=== PATIENT | female | born 1950 | race Caucasian/White ===

== ENCOUNTER → 2017-03-21 | Outpatient (CLI) | payer MEDICARE, OTHER ==
[~2017-03-21] MED LIST: /ADVA50050; /ALEN70TA; /AUGM875TA; /FEXO60TA; ASPI81TA83; CALCCHW12; ESTER C; KEFL500C; MOTR200T4; NASONEX; PRIL40CA; PROV90AE; SIMV10TA2; THERGRAN; VITA400C; ZEBE5TAB
[2017-03-23 14:15] LABS: F8 ACTIVITY FOR F8 PANEL 278 % (57-163); F8 ACTIVITY vWB FOR F8 PANEL 207 % (50-200); F8 ANTIGEN FOR F8 PANEL 260 % (50-200); INTERPRETATION: Note (.)
== END ==
LOC: M LAB 08:56
PROVIDERS: ATTEND Surgery
DX: I80.02 Phlebitis and thrombophlebitis of superficial vessels of left lower extremity (principal)

== ENCOUNTER → 2017-05-03 | Outpatient (REF) | payer MEDICARE, OTHER ==
[2017-05-03 13:24] LABS: FOLATE 6.8 NG/ML
[2017-05-03 13:27] LABS: INR 0.9
== END ==
LOC: M LAB REF 12:51
PROVIDERS: ATTEND Internal Medicine Medical Oncology
DX: M32.9 Systemic lupus erythematosus, unspecified (principal)

== ENCOUNTER → 2019-01-22 | Outpatient (REF) | payer MEDICARE, OTHER ==
[~2019-01-22] MED LIST changes: -/ADVA50050; +ADVA1AER2
== END ==
LOC: M LAB REF 11:34
PROVIDERS: ATTEND Internal Medicine
DX: D05.11 Intraductal carcinoma in situ of right breast (principal)

== ENCOUNTER → 2019-04-03 | Outpatient (CLI) | payer MEDICARE, OTHER ==
[~2019-04-03] MED LIST changes: +ADV250INH INH; +ALEN70TA74 PO; +ASPI81TA85 PO; +BISO5TAB2 PO; +DICL1GEL3; +LISI10TA4 PO; +OMEP40CA2 PO; +PROAAER10 INH; +SIMV20TA2 PO; +SM LTAB5 PO; +TAMO20TA8 PO
--- NOTE | 2019-04-07 08:24 | RADONC ---
RADIATION ONCOLOGY CONSULTATION NOTE DATE: 04/03/2019 CHART NUMBER: [id number] DIAGNOSIS: Right breast cancer. STAGE: IA, T1mi,pN0,M0, grade 1, HER2 negative, ER positive, [place] positive. ECOG PERFORMANCE STATUS: 0. CONSULTATION NOTE: Ms. 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 HISTORY OF PRESENT ILLNESS: The patient was in her usual state of health until routine mammogram was done on 12/22/2018 which showed a small nodular region in the 9 o'clock position of the right breast. On 03/28/2019 the patient underwent breast biopsy and pathology revealed a low grade ductal carcinoma in situ measuring approximately 4 mm in greatest extent. There were two microscopic foci of invasive carcinoma adjacent to the DCIS. Both foci were less than 1 mm. The invasive tumor was actually too small to grade and appeared to be a well-differentiated invasive lobular carcinoma. Lymphovascular invasion was not seen. Three sentinel lymph nodes were sampled and were negative for metastatic disease. The patient was seen by Dr. Jordana Rm from medical oncology and has started tamoxifen. She is now being referred for discussion of external beam radiation therapy as a possible option. PAST MEDICAL HISTORY: The patient's past medical history is positive for hypertension, asthma and arthritis. 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 ALLERGIES: The patient has no known drug allergies. SOCIAL HISTORY: The patient quit smoking at around the age of 24. She had smoked for 5 years. She drinks alcohol socially. FAMILY HISTORY: The patient's family history is positive for two brothers each with both bladder and prostate cancer. REVIEW OF SYSTEMS: The patient's review of systems is noncontributory. She denies nausea, vomiting, fevers, chills, night sweats, diplopia, headaches, anxiety or depression, anorexia, weight loss, visual disturbances, chest pain, urinary or bowel difficulties, bone pain, or neurological problems. PHYSICAL EXAMINATION: The patient is a well-developed, well-nourished, female in no acute distress. HEENT exam is normocephalic, atraumatic. Extraocular movements are intact. There is no palpable cervical, supraclavicular, infraclavicular, axillary, or inguinal lymphadenopathy present. Lungs are clear to auscultation and percussion. Heart has a regular rate and rhythm. Abdomen is benign with no hepatosplenomegaly, masses, or tenderness. Breast examination reveals no masses or discharge bilaterally. Skeletal examination reveals no tenderness to pressure or percussion of the bony skeleton. Extremities reveal no clubbing, cyanosis, or edema. Neurologic exam is grossly intact, as is the remainder of the physical examination. ASSESSMENT: I had a very lengthy discussion with this patient to review her options. I do believe she is a candidate for external beam radiation therapy and I have so informed her. I have discussed with the patient in detail the potential benefits as well as possible acute and chronic sequelae of external beam radiation therapy. We discussed logistics of treatment planning, simulation and subsequent fractionated daily radiation treatments. In addition, I discussed in detail and gave her copies of the NCCN guidelines for early stage invasive breast cancer. Option one as clearly stated, breast irradiation may be omitted in patients 70 years of age or greater with estrogen/receptor positive, clinical node negative, T1 tumors who receive adjuvant endocrine therapy. That would include this patient although she just barely makes it with her age. The other option would be standard fractionation radiation to the whole breast for a total of approximately 6-1/2 weeks of treatment. The third option of course would be the [place] protocol with hypofractionated radiation over 3 weeks with possibly 1 week for scar boost treatment . The patient has decided she does want radiation and I have asked her to think about the two options with fractionation schedules. I think she would qualify for either one. The patient is light skinned and of [place] descent and is somewhat concerned with higher daily doses and the possibility for increased burning. I let her know that we have done this quite some time and I have not seen any significant increases in radiation erythema effects with the hypofractionated protocol but she will think about it and get back to us before we initiate treatment. I have scheduled this patient for the next available simulation slot and radiation treatments will begin subsequently. Thank you for allowing us to participate in the care of this very pleasant woman. If I could be of any further assistance or provide you with any information, please free to contact me anytime. cc: MD Kala Knight MD Sara McGee, MD [facility]
== END ==
LOC: M ONCR 13:39
PROVIDERS: ATTEND Radiology Radiation Oncology
DX: C50.911 Malignant neoplasm of unspecified site of right female breast (principal)

== ENCOUNTER → 2019-04-14 | Outpatient (RCR) | payer MEDICARE, OTHER ==
[2019-04-08 14:57] LABS: HEMATOCRIT 34.9 % (36.0-47.0); HEMOGLOBIN 11.7 g/dl (12.0-15.5); LYMPH % 29.8 % (24.0-44.0); MEAN CORPUSCULAR HEMOGLOBIN 31.5 pg (27.0-33.0); MEAN CORPUSCULAR HGB CONC 33.5 g/dl (32.0-36.5); NEUTROPHILS # 3.5 10^3/uL (1.8-7.7); NEUTROPHILS % 61.3 % (36.0-66.0); RED BLOOD COUNT 3.71 10^6/uL (4.00-5.40); WHITE BLOOD COUNT 5.7 10^3/uL (4.0-10.0)
--- NOTE | 2019-04-09 15:31 | RADONC ---
RADIATION ONCOLOGY SIMULATION NOTE DATE: 04/08/2019 CHART NUMBER: [id number] Ms. Gallagher was taken to the CT scan for CT simulation of her right breast field. CT was accomplished without difficulty or discomfort. Radiation treatment planning is underway and radiation treatments will begin subsequently. An immobilization device was created. It was created without difficulty or discomfort. It will be used throughout the course of treatment. I was physically present throughout the course of CT simulation.
--- NOTE | 2019-04-15 08:32 | RADONC ---
RADIATION ONCOLOGY PROGRESS NOTE DATE: 04/14/2019 CHART #: [id number] Ms. Gallagher is presently at a dose of 180 cGy for her first fraction of radiation to her right breast. It was tolerated without difficulty or discomfort. REVIEW OF SYSTEMS: The patient's review of systems is noncontributory. Denies nausea, vomiting, fevers, chills, night sweats, diplopia, headaches, anxiety or depression, anorexia, weight loss, visual disturbances, chest pain, urinary or bowel difficulties, bone pain, or neurological problems. PHYSICAL EXAMINATION: The patient's skin clearly shows no evidence of radiation change present as this was her first fraction of treatment. The remainder of her physical exam remained unchanged as well. Ms. Gallagher tolerated his first fraction quite well and radiation will continue as scheduled.
== END ==
LOC: M ONCR 04-08 13:52
PROVIDERS: ATTEND Radiology Radiation Oncology
DX: C50.811 Malignant neoplasm of overlapping sites of right female breast (principal)

== ENCOUNTER → 2019-05-15 | Outpatient (RCR) | payer MEDICARE, OTHER ==
--- NOTE | 2019-04-21 10:54 | RADONC ---
RADIATION ONCOLOGY DATE: 04/21/2019 CHART NUMBER: [id number] PROGRESS NOTE: Ms. Gallagher is presently a dose of 1080 cGy to her right breast and is tolerating treatments quite well at this point with no complaints related to her radiation therapy. She is having no breast or bone pain. REVIEW OF SYSTEMS: The patient's review of systems is noncontributory. Denies nausea, vomiting, fevers, chills, night sweats, diplopia, headaches, anxiety or depression, anorexia, weight loss, visual disturbances, chest pain, urinary or bowel difficulties, bone pain, or neurological problems. PHYSICAL EXAMINATION: The patient's skin is in good condition with no evidence of radiation change present. There is no moist or dry desquamation. The remainder of her physical exam remains unchanged. Ms. Gallagher is tolerating treatments quite well and radiation will continue as scheduled.
--- NOTE | 2019-04-28 09:58 | RADONC ---
RADIATION ONCOLOGY PROGRESS NOTE DATE: 04/28/2019 CHART NUMBER: [id number] PROGRESS NOTE: Ms. Gallagher is presently at a dose of 1980 cGy to her right breast and is tolerating treatments quite well at this point with no complaints related to her radiation therapy. She is having no breast or bone pain. REVIEW OF SYSTEMS: The patient's review of systems is noncontributory. Denies nausea, vomiting, fevers, chills, night sweats, diplopia, headaches, anxiety or depression, anorexia, weight loss, visual disturbances, chest pain, urinary or bowel difficulties, bone pain, or neurological problems. PHYSICAL EXAMINATION: The patient's skin is in good condition with no evidence of moist or dry desquamation. The remainder of her physical exam remains unchanged. Ms. Gallagher is tolerating treatments quite well and radiation will continue as scheduled.
--- NOTE | 2019-05-06 06:45 | RADONC ---
RADIATION ONCOLOGY PROGRESS NOTE DATE: 05/05/2019 CHART #: [id number] DIAGNOSIS: Right breast cancer. Mrs. Gallagher with a diagnosis of a stage I A right breast cancer, HER2/aga negative, ER positive, [place] positive, is currently receiving local regional radiotherapy and appears to be doing quite well. She denies any major side effects relating to her treatments. Her energy level is excellent. REVIEW OF SYSTEMS: She specifically denies any nausea, vomiting, coughing, sputum production or hemoptysis. Her energy level is such that she is able to maintain most day-to-day activities without any alteration of her lifestyle. Skin irritation is minimal if perceptible at all. EXAMINATION FINDINGS: The skin within the irradiated volume looks normal. There is no palpable peripheral lymphadenopathy. The remainder of the physical examination is unchanged. IMPRESSION: Tolerating therapy well. PLAN: Treatments to continue. MTDD
--- NOTE | 2019-05-12 09:43 | RADONC ---
RADIATION ONCOLOGY PROGRESS NOTE DATE OF SERVICE: 05/12/2019 CHART NUMBER: [id number]. PROGRESS NOTE: Ms. Gallagher is presently at a dose of 3780 cGy to her right breast and is tolerating treatments quite well at this point with no complaints related to her radiation therapy. She has no significant breast or bone pain. REVIEW OF SYSTEMS: The patient's review of systems is noncontributory. She denies nausea, vomiting, fevers, chills, night sweats, diplopia, headaches, anxiety or depression, anorexia, weight loss, visual disturbances, chest pain, urinary or bowel difficulties, bone pain, or neurological problems. PHYSICAL EXAMINATION: The patient's skin is in good condition with no evidence of moist or dry desquamation. There is some erythema present over the treated field. The remainder of her physical exam remains unchanged. Ms. Gallagher is tolerating treatments quite well, and radiation will continue as scheduled.
--- NOTE | 2019-05-14 12:13 | RADONC ---
RADIATION ONCOLOGY SIMULATION NOTE DATE: 06/14/2019 Ms. Gallagher was taken to the linear accelerator today for clinical setup of her right breast electron beam boost field. Setup was accomplished without difficulty or discomfort. Radiation treatment planning is underway and radiation treatments will begin subsequently. An immobilization device was created without difficulty or discomfort. It will be used throughout the course of treatment. I was physically present throughout the course of clinical setup simulation.
[~2019-05-15] MED LIST changes: -OMEP40CA2 PO; +OMEP40CA97 PO
== END ==
LOC: M ONCR 04-15 08:10
PROVIDERS: ATTEND Radiology Radiation Oncology
DX: C50.811 Malignant neoplasm of overlapping sites of right female breast (principal)

== ENCOUNTER 2019-05-28 08:16 | Outpatient (RCR) | payer MEDICARE, OTHER ==
--- NOTE | 2019-05-19 13:35 | RADONC ---
RADIATION ONCOLOGY PROGRESS NOTE DATE: 05/19/2019 CHART NUMBER: [id number] Mrs. Gallagher, with a diagnosis of right-sided breast cancer, is currently receiving local regional radiotherapy and her dose to date is 4860 cGy. She will receive a 1200 cGy boost to the lumpectomy site following completion of her whole breast radiotherapy. REVIEW OF SYSTEMS: She is tolerating her radiotherapy reasonably well with the only major side effect being that of skin irritation. She denies any nausea, vomiting, coughing, sputum production or hemoptysis. Her energy level is such that she is able to maintain most day-to-day activities without any alteration of her lifestyle. EXAMINATION FINDINGS: The skin within the irradiated volume shows focal desquamation in the inframammary fold. There is a brisk erythematous blush throughout the inframammary area. No palpable peripheral lymphadenopathy is appreciated. Lungs are clear. IMPRESSION: Tolerating therapy well. PLAN: We have prescribed some Silvadene for the patient to use on her skin for her skin reaction and subsequent discomfort secondary to this reaction. Treatments to continue. MTDD
--- NOTE | 2019-05-26 10:07 | RADONC ---
RADIATION ONCOLOGY PROGRESS NOTE DATE OF SERVICE: 05/26/2019 CHART NUMBER: [id number]. PROGRESS NOTE: Ms. Gallagher is presently at a dose of 5660 cGy to her right breast primary site boost and is tolerating treatments quite well at this point with no significant difficulties related to her radiation therapy other than some axillary and inframammary discomfort. REVIEW OF SYSTEMS: The patient's review of systems is positive for discomfort in the inframammary and axillary regions but is otherwise noncontributory. She denies nausea, vomiting, fevers, chills, night sweats, diplopia, headaches, anxiety or depression, anorexia, weight loss, visual disturbances, chest pain, urinary or bowel difficulties, bone pain, or neurological problems. PHYSICAL EXAMINATION: The patient's skin in the presently-treated boost field is within good conditions with no evidence of moist or dry desquamation. There is some moist desquamation in the inframammary area and some dry desquamation in the axillary region. The remainder of her skin has some erythema and tanning present. The remainder of her physical exam remains unchanged. Ms. Gallagher is tolerating her treatments fairly well and is continuing radiation to the boost region. She is using Silvadene regularly in the axillary and inframammary regions.
--- NOTE | 2019-05-28 12:44 | RADONC ---
RADIATION ONCOLOGY TREATMENT SUMMARY DATE: 05/28/2019 CHART NUMBER: [id number] DIAGNOSIS: Right breast cancer. STAGE: IA, T1mi, pN0M0, grade 1, HER2/aga negative, [place] positive, ER positive. ECOG PERFORMANCE STATUS: 0 TREATMENT SUMMARY: Ms. Gallagher is a very pleasant 69-year-old white female with the diagnosis of what appears to be a stage IA, T1mi, pN0M0, well-differentiated infiltrating ductal carcinoma of the right breast which is ER positive, [place] positive, and HER2/aga negative, who presented to us status post lumpectomy and sentinel lymph node biopsy for consideration of postoperative radiation therapy for conservative breast management. We treated the patient to the right breast for a total dose of 4860 cGy delivered in 27 fractions of 180 cGy each over 36 elapsed days from 04/14/2019 through 05/20/2019. The patient's right breast was treated on the linear accelerator utilizing a 3D conformal technique with medial and lateral tangential langley and a combination of 10MV and 6MV photons. Following completion of 4860 cGy to the entire right breast, the primary site was boosted for an additional 1200 cGy delivered in six fractions of 200 cGy each from 05/21/2019 through 05/28/2019 over 7 elapsed days. This brought the primary site to a total dose of 6060 cGy delivered in 33 fractions over 43 elapsed days from 04/14/2019 through 05/28/2019. Ms. Gallagher tolerated her treatments quite well and was able to complete therapy as prescribed. I have scheduled the patient to see me again in 1 month for further followup. She will also continue to be followed by her other physicians as well. Thank you for allowing us to participate in the care of this very pleasant woman. If I could be of any further assistance or provide you with any information, please feel free to contact me at anytime. cc: MD Kala Knight MD Sara McGee, MD
[2019-06-07] MEDS ORDERED: CEFU1TAB22 (17:12)
[2019-06-09] MEDS ORDERED: TAMO20TA8 PO (11:50)
== END 2019-06-14 ==
LOC: M ONCR 08:16
PROVIDERS: ATTEND Radiology Radiation Oncology
DX: C50.811 Malignant neoplasm of overlapping sites of right female breast (principal)

== ENCOUNTER 2019-06-07 16:15 | Emergency (ER) | payer MEDICARE, OTHER ==
[~2019-06-07] VITALS: Ht 162.6 cm; Wt 115.9 kg
[2019-06-07] MEDS ORDERED: ONDANSETRON 4MG/2ML VIAL (J2405) IV ONE (16:45)
[2019-06-07] MEDS ORDERED: MORPHINE 2 MG/ML 1ML VIAL (J2270) IV ONE (16:45)
[2019-06-07] MEDS ORDERED: ASPIRIN 81 MG CHEW TABLET PO ONE (16:45)
[2019-06-07] MEDS ORDERED: ISOVUE-370 76% 100ML VIAL (Q9967) As Ordered ONE (16:50)
[2019-06-07 16:58] LABS: BASO % 0.5 % (0.0-1.0); EOS # 0.1 10^3/uL (0.0-0.5); EOS % 2.5 % (0.0-3.0); HEMATOCRIT 37.5 % (36.0-47.0); HEMOGLOBIN 12.8 g/dl (12.0-15.5); LYMPH # 0.8 10^3/uL (1.5-5.0); LYMPH % 14.6 % (24.0-44.0); MEAN CORPUSCULAR HEMOGLOBIN 31.1 pg (27.0-33.0); MEAN CORPUSCULAR HGB CONC 34.1 g/dl (32.0-36.5); MEAN CORPUSCULAR VOLUME 91.2 fl (80.0-96.0); MONO # 0.5 10^3/uL (0.0-0.8); MONO % 8.1 % (0.0-5.0); NEUTROPHILS # 4.2 10^3/uL (1.5-8.5); NEUTROPHILS % 73.9 % (36.0-66.0); PLATELET COUNT, AUTOMATED 251 10^3/uL (150-450); RED BLOOD COUNT 4.11 10^6/uL (4.00-5.40); WHITE BLOOD COUNT 5.7 10^3/uL (4.0-10.0)
[2019-06-07] MEDS ORDERED: GI COCKTAIL 50ML BTL(HYOSCYAMINE/MAALOX/LIDOCAINE VISCOUS)(1:3:1) PO ONE ×2 (17:00→20:15)
[2019-06-07] MEDS ORDERED: CEFU1TAB22 (17:12)
[2019-06-07 17:29] LABS: ALBUMIN 3.7 GM/DL (3.2-5.2); ALT/SGPT 21 U/L (12-78); BILIRUBIN,DIRECT < 0.1 MG/DL (0.0-0.2); BILIRUBIN,TOTAL 0.4 MG/DL (0.2-1.0); BLOOD UREA NITROGEN 10 MG/DL (7-18); CARBON DIOXIDE LEVEL 26 MEQ/L (21-32); CHLORIDE LEVEL 100 MEQ/L (98-107); CK-MB VALUE MASS < 1.0 NG/ML (<3.6); CPK CREATINE PHOSPHOKINASE 146 U/L (26-192); CREATININE FOR GFR 0.88 MG/DL (0.55-1.30); FREE T4 1.12 NG/DL (0.76-1.46); GLOMERULAR FILTRATION RATE > 60.0 (>39); GLUCOSE, FASTING 100 MG/DL (70-100); LIPASE 157 U/L (73-393); MB/CK RELATIVE INDEX 0.68 (< OR =4); NT-PRO BNP 524 PG/ML (<125); POTASSIUM SERUM 3.4 MEQ/L (3.5-5.1); SODIUM LEVEL 136 MEQ/L (136-145); TOTAL PROTEIN 7.6 GM/DL (6.4-8.2); TROPONIN I < 0.02 NG/ML (< 0.10)
[2019-06-07 17:42] LABS: INR 1.1; PARTIAL THROMBOPLASTIN TIME 23.9 SECONDS (25.0-38.4)
--- NOTE | 2019-06-07 18:09 | REPVR ---
PROCEDURE INFORMATION: Exam: CT Angiography Chest With Contrast Exam date and time: 06/07/2019 4:44 PM Age: 69 years old Clinical history: Other: Nausea; Sternal or substernal pain; Additional info: RO dissection/pe TECHNIQUE: Imaging protocol: Computed tomographic angiography of the chest with intravenous contrast. 3D rendering: MIP and 3D reconstructed images were created and reviewed. Radiation optimization: All CT scans at this facility use at least one of these dose optimization techniques: automated exposure control; mA and/or kV adjustment per patient size (includes targeted exams where dose is matched to clinical indication); or iterative reconstruction. Contrast material: ISOVUE 370; Contrast volume: 75 ml; Contrast route: IV; COMPARISON: CR PORTABLE CHEST X-RAY 2019-06-07 16:20 FINDINGS: Limitations: Limited by patient's body habitus. Pulmonary arteries: Normal. No pulmonary emboli. Aorta: Unremarkable. No aortic aneurysm. No aortic dissection. Lungs: Dependent subsegmental pulmonary atelectasis. Pleural space: Unremarkable. No pneumothorax. No pleural effusion. Heart: Cardiomegaly. Lymph nodes: Unremarkable. No enlarged lymph nodes. Bones/joints: Mild to moderate thoracic spondylosis with exaggeration of the thoracic kyphosis and associated degenerative endplate spurring and disc space loss. Soft tissues: Right breast skin thickening with 5.6 x 1.8 cm small area of fluid density in the subcutaneous soft tissue. IMPRESSION: 1. No acute aortic abnormality. 2. Right breast skin thickening with 5.6 x 1.8 cm small area of fluid density in the subcutaneous soft tissue. Electronically signed by: Miquel Gallardo On 06/07/2019 18:09:38 PM
--- NOTE | 2019-06-07 19:04 | ECGEPIP ---
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
--- NOTE | 2019-06-07 19:04 | ECGEPIP ---
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
[2019-06-07] MEDS ORDERED: NORCO, ANEXSIA 5/325MG TABLET (HYDROcodone/ACETAMINOPHEN) PO ONE (20:15)
[2019-06-07] MEDS ORDERED: ONDANSETRON 4 MG ORAL DISINTEGRATING TAB (Q0162 PER 1MG) PO ONE (20:15)
[2019-06-07 21:08] LABS: CK-MB VALUE MASS < 1.0 NG/ML (<3.6); CPK CREATINE PHOSPHOKINASE 91 U/L (26-192); TROPONIN I < 0.02 NG/ML (< 0.10)
[2019-06-07 21:47] VITALS: BP 150/69
--- NOTE | 2019-06-08 06:28 | ECGEPIP ---
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
--- NOTE | 2019-06-08 08:05 | REP ---
REASON: Chest pain. COMPARISON: Multiple, the latest 05/14/2014. The technique utilized in obtaining the radiograph has magnified the cardiac silhouette and accentuated the interstitial markings. There is cardiomegaly accentuated by technique. The lung langley are unchanged from the prior exam. No acute patchy parenchymal opacities or pleural effusions have developed. The osseous structures are stable and intact. IMPRESSION: Cardiomegaly without evidence of acute cardiopulmonary disease. Electronically Signed by Royer Warren DO 06/08/2019 09:24 A
--- NOTE | 2019-06-08 19:59 | ED PDOC ---
Post-Departure Follow-Up dr mancilla faxed formal report of cta chest for fu Elly Vo MD Jun 08, 2019 19:59
== END 2019-06-07 22:06 | disposition home or self-care (01) ==
LOC: M ED 16:15
DX: R07.9 Chest pain, unspecified (principal); R94.31 Abnormal electrocardiogram [ECG] [EKG]; I10 Essential (primary) hypertension; E78.5 Hyperlipidemia, unspecified; Z79.899 Other long term (current) drug therapy; Z85.3 Personal history of malignant neoplasm of breast; Z87.891 Personal history of nicotine dependence; Z91.048 Other nonmedicinal substance allergy status
CPT/HCPCS: 71045; 71275; 80047; 80048; 80076; 82550; 82553; 83690; 84439; 84443; 84484; 85025; 85610; 85730; 87040; 93005; 93041; 94760; 96374; 96375; 99285; J2270; J2405; Q0162; Q9967

== ENCOUNTER → 2019-07-02 | Outpatient (CLI) | payer MEDICARE, OTHER ==
[~2019-07-02] MED LIST changes: +CEFU1TAB22; -SIMV20TA2 PO; +SIMV20TA22 PO
--- NOTE | 2019-07-04 15:00 | RADONC ---
RADIATION ONCOLOGY FOLLOWUP NOTE: DATE: 07/02/2019 CHART NUMBER: [id number] DIAGNOSIS: Right breast cancer. STAGE: I A, pT1mi pN0 M0, grade 1, HER2/aga negative, ER positive, [place] positive. ECOG PERFORMANCE STATUS: 0 Ms. Gallagher is a pleasant 69-year-old white female with the diagnosis of what appears to be a stage I A, little pT1mi pN0 cM0, well-differentiated infiltrating ductal carcinoma of the right breast which is ER positive, [place] positive and HER2/aga negative, who is presenting to us today for routine followup visit 1 month post completion of external beam radiation therapy. The patient presents today reporting that generally she is doing quite well with no complaints at this time related to her radiation therapy or disease. She did have some bronchitis upon completion of treatment and has had some gallbladder issues but nothing related to her malignancy over her radiation. The patient's review of systems at this time is noncontributory. She denies standard review of systems. PHYSICAL EXAMINATION: The patient is a well-developed, well-nourished female in no acute distress. HEENT exam is normocephalic, atraumatic. Extraocular movements are intact. There is no palpable cervical, supraclavicular, infraclavicular, axillary, or inguinal lymphadenopathy present. Lungs are clear to auscultation and percussion. Heart has a regular rate and rhythm. Abdomen is benign with no hepatosplenomegaly, masses, or tenderness. Breast examination reveals no masses or discharge bilaterally. Skeletal examination reveals no tenderness to pressure or percussion of the bony skeleton. Extremities reveal no clubbing, cyanosis, or edema. Neurologic exam is grossly intact, as is the remainder of the physical examination. ASSESSMENT: The patient is clinically [place]ER[place] at this time. She is continuing her close followup with her surgeon Dr. Frank Carpenter and is seeing him every 3 weeks. His office informed her that they will be ordering the mammograms and all scheduled appointments. In light of this I am discharging her from my followup except on a p.r.n. basis. The patient was seen by Dr. Jordana Rm for initiation of her tamoxifen. Dr. Rm has left and the patient does not wish to be seen in [facility]ology [facility]. She is asked for referral to [place]. We are happy to refer her to an oncologist in [place] but I since all her followup and management will now be through Dr. Carpenter's office, I have asked her to contact him and seen which oncologist he prefers to work with. I would be glad to send a referral myself or Dr. Carpenter can do that as well. Once again, the patient has my cell phone number and office number. We are available to her at anytime if we could be of any assistance in the meantime. cc: MD Nancy Knight MD Julie LaPointe, MD
== END ==
LOC: M ONCR 08:58
PROVIDERS: ATTEND Radiology Radiation Oncology
DX: C50.811 Malignant neoplasm of overlapping sites of right female breast (principal); Z92.3 Personal history of irradiation

== ENCOUNTER 2019-07-15 07:50 | Inpatient (IN) | payer MEDICARE, OTHER ==
[~2019-07-15] VITALS: Ht 162.6 cm; Wt 109.2 kg
[2019-07-15] MEDS ORDERED: IBUP200C25 PO (08:14)
[2019-07-15] MEDS ORDERED: VOLT1GEL15 TOP (08:14)
[2019-07-15] MEDS ORDERED: ASPI81CH33 PO (08:14)
[2019-07-15] MEDS ORDERED: ALBUTEROL SULFATE 2.5 MG/0.5 ML INH NEB SOLN INH ONE (08:15)
[2019-07-15] MEDS ORDERED: IPRATROPIUM 0.5MG/ALBUTEROL 2.5MG INH SOL UD 3ML (DUONEB)(J7620) NEB ONE (08:15)
[2019-07-15] MEDS ORDERED: dexameTHASONE 20 MG/5 ML VIAL (J1100) IV ONE (08:15)
[2019-07-15] MEDS ORDERED: POTA10TA17 PO (08:16)
[2019-07-15] MEDS ORDERED: POTA20TA6 PO (08:16)
--- NOTE | 2019-07-15 08:32 | REP ---
Clinical: Cough and dyspnea . Comparison: 06/07/2019 . Findings: The mediastinum and cardiac silhouette are stable and within normal limits for portable technique. The lung langley are clear without acute consolidation, effusion, or pneumothorax. Skeletal structures are intact. Impression: No acute cardiopulmonary process appreciated. Electronically Signed by Vladimir Wagner MD 07/15/2019 08:23 A
[2019-07-15 09:06] LABS: VENOUS BASE EXCESS 0.1 (-2.0-2.0); VENOUS HCO3 24.8 MEQ/L (23.0-27.0); VENOUS O2 SATURATION 62.4 % (60.0-80.0); VENOUS PARTIAL PRESSURE CO2 40.4 mmHg (38.0-50.0); VENOUS PH 7.406 UNITS (7.330-7.430); VENOUS STANDARD HCO3 23.9 MEQ/L
[2019-07-15 09:09] LABS: BASO % 0.3 % (0.0-1.0); EOS # 0.1 10^3/uL (0.0-0.5); EOS % 0.8 % (0.0-3.0); HEMOGLOBIN 10.2 g/dl (12.0-15.5); LYMPH % 13.3 % (24.0-44.0); MEAN CORPUSCULAR HEMOGLOBIN 29.9 pg (27.0-33.0); MEAN CORPUSCULAR HGB CONC 32.9 g/dl (32.0-36.5); MEAN CORPUSCULAR VOLUME 90.9 fl (80.0-96.0); MONO # 0.5 10^3/uL (0.0-0.8); MONO % 6.7 % (0.0-5.0); NEUTROPHILS # 5.6 10^3/uL (1.5-8.5); NEUTROPHILS % 78.5 % (36.0-66.0); PLATELET COUNT, AUTOMATED 173 10^3/uL (150-450); RED BLOOD COUNT 3.41 10^6/uL (4.00-5.40); WHITE BLOOD COUNT 7.1 10^3/uL (4.0-10.0)
[2019-07-15 09:29] LABS: INR 1.25; PROTHROMBIN TIME 15.4 SECONDS (11.8-14.0)
[2019-07-15 09:37] LABS: ALT/SGPT 19 U/L (12-78); BILIRUBIN,DIRECT 0.3 MG/DL (0.0-0.2); BILIRUBIN,TOTAL 0.9 MG/DL (0.2-1.0); BLOOD UREA NITROGEN 8 MG/DL (7-18); CALCIUM LEVEL 8.4 MG/DL (8.8-10.2); CARBON DIOXIDE LEVEL 23 MEQ/L (21-32); CHLORIDE LEVEL 98 MEQ/L (98-107); CK-MB VALUE MASS < 1.0 NG/ML (<3.6); CPK CREATINE PHOSPHOKINASE 59 U/L (26-192); CREATININE FOR GFR 1.01 MG/DL (0.55-1.30); GLOMERULAR FILTRATION RATE 57.7 (>39); GLUCOSE, FASTING 127 MG/DL (70-100); MAGNESIUM LEVEL 1.7 MG/DL (1.8-2.4); MB/CK RELATIVE INDEX 1.69 (< OR =4); NT-PRO BNP 3059 PG/ML (<125); POTASSIUM SERUM 3.3 MEQ/L (3.5-5.1); SODIUM LEVEL 132 MEQ/L (136-145); TOTAL PROTEIN 6.5 GM/DL (6.4-8.2); TROPONIN I 0.14 NG/ML (< 0.10)
[2019-07-15] MEDS ORDERED: MAG SULF 1GM/100ML (MAG RUN) 1 GM in IV 1 EA IV ONE (09:45)
[2019-07-15 10:10] LABS: INFLUENZA A AMPLIFICATION NEGATIVE (NEGATIVE); INFLUENZA B AMPLIFICATION NEGATIVE (NEGATIVE)
[2019-07-15] MEDS ORDERED: ISOVUE-370 76% 100ML VIAL (Q9967) As Ordered ONE (10:13)
[2019-07-15] MEDS ORDERED: HEPARIN SOD (PORCINE) 5000 UNITS/ML VIAL IV ONE (11:00)
--- NOTE | 2019-07-15 11:06 | REP ---
Clinical: Shortness of breath. History breast cancer. Technique: Axial contrast enhanced images from the thoracic inlet to the upper abdomen with multiplanar MIP re-formations using pulmonary embolus technique. 100 ml Isovue 370 intravenous contrast material administered without complication. Comparison: 06/07/2019. Findings: Large pulmonary emboli noted in the left main pulmonary artery extending into the left upper lobe, lingular, and left lower lobe branches as well as a large pulmonary embolus extending from the right main pulmonary artery into the right upper lobe, right lower lobe, and right middle lobe pulmonary arteries. Associated right pleural effusion and mild scattered atelectasis noted. No pneumothorax. No axillary, hilar, or mediastinal adenopathy. Thoracic aorta without aneurysm or dissection. Cardiomegaly noted without pericardial effusion. Musculoskeletal structures are intact. Limited upper abdomen demonstrates normal bilateral adrenal glands. Impression: Significant diffuse bilateral pulmonary emboli as detailed above with associated right pleural effusion and scattered atelectasis. Electronically Signed by Vladimir Wagner MD 07/15/2019 10:57 A
[2019-07-15 11:13] LABS: PARTIAL THROMBOPLASTIN TIME 29.6 SECONDS (25.0-38.4)
[2019-07-15] MEDS ORDERED: LORA-674 PO (11:45)
[2019-07-15] MEDS ORDERED: ASPI81TA26 PO (11:45)
[2019-07-15] MEDS ORDERED: FLON1SPR NARES (11:45)
[2019-07-15] MEDS ORDERED: HEPARIN DRIP 25,000 UNITS in IV 1 EA IV SCH (12:00)
[2019-07-15] MEDS ORDERED: HEPARIN SOD (PORCINE) 5000 UNITS/ML VIAL IV PRN (12:45)
[2019-07-15] MEDS: POTASSIUM CHLORIDE 10 MEQ SR TABLET PO SCH ×3 (12:59→16:43)
[2019-07-15 14:00] VITALS: BP 130/70
[2019-07-15] MEDS: HEPARIN DRIP 25,000 UNITS in IV 1 EA IV SCH (14:06)
[2019-07-15] MEDS: bisoproloL fumarate 5 MG TAB PO SCH (14:11)
[2019-07-15] MEDS: LORATADINE 10 MG TAB PO SCH (14:11)
[2019-07-15] MEDS: hydroCHLOROthiazide 12.5 MG CAPSULE PO SCH ×2 (14:12→16:00)
[2019-07-15] MEDS: ASPIRIN 81 MG ENTERIC TAB PO SCH (14:12)
[2019-07-15 16:00] VITALS: BP 141/67
--- NOTE | 2019-07-15 17:15 | HPEPDOC ---
[facility] Medical History & Physical Date of Admission Jul 15, 2019 Date of Service: Jul 15, 2019 Attending Physician: CALE BHATIA MD History and Physical CHIEF COMPLAINT: Progressive shortness of breath HISTORY OF PRESENT ILLNESS: 69-year-old female with past medical history of breast cancer status post lumpectomy, radiation and currently on tamoxifen, hypertension, asthma, and hyperlipidemia presents from home with progressive shortness of breath. She started noticing lower extremity swelling with shortness of breath over the past few days, progressively worsening, to the point of developing shortness of breath even walking 10 feet. She reports being able to walk a city block a week ago, whereas now she can barely walk to the bathroom. She does have associated nonproductive cough with minimal chest discomfort and lower extremity swelling. In the ED, she is found to have large bilateral PEs. She was diagnosed with breast cancer in January 2019, status post lumpectomy followed by radiation treatment and currently on tamoxifen. She denies any nausea, vomiting, abdominal pain, diarrhea or constipation. 10 point review of system is negative except for above PAST MEDICAL HISTORY: 1. Breast cancer. 2. Hypertension. 3. Hyperlipidemia. 4. Asthma PAST SURGICAL HISTORY: 1. Lumpectomy. 2. Cholecystectomy. SOCIAL HISTORY: Never smoker. Social alcohol use. Denies drug use FAMILY HISTORY: Mother had CVA. Father had COPD ALLERGIES: Please see below. HOME MEDICATIONS: Please see below. PHYSICAL EXAMINATION: VITAL SIGNS: Please see below. GENERAL: No distress HEENT: Normocephalic, atraumatic, moist mucous membranes NECK: Supple CARDIOVASCULAR EXAMINATION: S1, S2, tachycardic RESPIRATORY EXAMINATION: Scattered rhonchi, no wheezing ABDOMINAL EXAMINATION: Soft, nontender, nondistended, positive bowel sounds EXTREMITIES: Bilateral lower extremity edema, right greater than left SKIN: No rash NEUROLOGICAL EXAMINATION: Alert and oriented 3, no focal deficits PSYCHIATRIC EXAMINATION: Calm and cooperative LABORATORY DATA: See below. IMAGING: CTA showing bilateral large pulmonary embolism MICROBIOLOGY: Please see below. ASSESSMENT: 69-year-old female with past medical history of breast cancer, hypertension, hyperlipidemia and asthma knee admitted for large bilateral PEs. PLAN: 1. Bilateral pulmonary embolism. Likely caused by malignancy/medication, hemodynamically stable, continue heparin drip, lower extremity Doppler to assess for large DVTs that may require intervention. 2. Breast cancer. Status post lumpectomy and radiation, hold tamoxifen. 3. Hypertension. Continue lisinopril and bisoprolol 4. Hyperlipidemia. Continue statin DVT prophylaxis: On heparin gtt. GI prophylaxis: Home PPI Vital Signs Vital Signs Date Time Temp Pulse Resp B/P (MAP) Pulse Ox O2 Delivery O2 Flow Rate FiO2 07/15/19 14:11 83 130/70 07/15/19 14:00 97.3 25 94 Nasal Cannula 1.0 Laboratory Data Labs 24H Laboratory Tests 2 07/15/19 08:42: Influenza Type A (RT-PCR) NEGATIVE, Influenza Type B (RT-PCR) NEGATIVE 07/15/19 08:51: Immature Granulocyte % (Auto) 0.4, Neutrophils (%) (Auto) 78.5H, Lymphocytes (%) (Auto) 13.3L, Monocytes (%) (Auto) 6.7H, Eosinophils (%) (Auto) 0.8, Basophils (%) (Auto) 0.3, Neutrophils # (Auto) 5.6, Lymphocytes # (Auto) 1.0L, Monocytes # (Auto) 0.5, Eosinophils # (Auto) 0.1, Basophils # (Auto) 0.0, Nucleated Red Blood Cells % (auto) 0.0, Prothrombin Time 15.4H, Prothromb Time International Ratio 1.25, Activated Partial Thromboplast Time 29.6, Blood Gas Bicarbonate Standard 23.9, Venous Blood pH 7.406, Venous Blood Partial Pressure CO2 40.4, Venous Blood Partial Pressure O2 35.0, Venous Blood Total Carbon Dioxide 26.0, Venous Blood HCO3 24.8, Venous Blood Oxygen Saturation 62.4, Venous Blood Base Excess 0.1, Anion Gap 11, Glomerular Filtration Rate 57.7, Calcium Level 8.4L, Magnesium Level 1.7L, Total Bilirubin 0.9, Direct Bilirubin 0.3H, Aspartate Amino Transf (AST/SGOT) 17, Alanine Aminotransferase (ALT/SGPT) 19, Alkaline Phosphatase 51, Total Creatine Kinase 59, Creatine Kinase MB < 1.0, Creatine Kinase MB Relative Index 1.69, Troponin I 0.14H, VH-Pwk-D-Type Natriuretic Peptide 3059H, Total Protein 6.5, Albumin 3.0L, Albumin/Globulin Ratio 0.86L, Thyroid Stimulating Hormone (TSH) 2.250 07/15/19 13:29: Activated Partial Thromboplast Time 46.6H CBC/BMP Laboratory Tests 07/15/19 08:51 Microbiology Microbiology 07/15/19 Blood Culture, Received Pending 07/15/19 Blood Culture, Received Pending Home Medications Scheduled Aspirin (Aspirin EC) 81 Mg Tablet.dr, 81 MG PO DAILY Bisoprolol/Hydrochlorothiazide (Bisoprolol-Hctz 5-6.25 mg Tab) 1 Each Tablet, 1 TAB PO DAILY Lisinopril (Lisinopril) 10 Mg Tablet, 10 MG PO QHS Loratadine (Loratadine) 10 Mg Tablet, 10 MG PO DAILY Omeprazole (Omeprazole) 40 Mg Capsule.dr, 40 MG PO DAILY Potassium Chloride (Potassium Chloride) 10 Meq Tab.er.prt, 20 MEQ PO DAILY Salmeterol/Fluticasone (Advair 250-50 Diskus) 1 Each Blst.w.dev, 1 PUFF INH BID Simvastatin (Simvastatin) 20 Mg Tablet, 20 MG PO QHS Tamoxifen Citrate (Tamoxifen Citrate) 20 Mg Tablet, 1 TAB PO DAILY Scheduled PRN Albuterol Sulfate (Proair Hfa) 8.5 Gm Hfa.aer.ad, 2 PUFF INH QID PRN for SHORTNESS OF BREATH Diclofenac Sodium (Voltaren) 100 Gm Gel..gram., 1 DOSE TOP TID PRN for PAIN APPLY TO ANY AREA OF PAIN Fluticasone Propionate (Flonase Allergy Relief) 9.9 Ml [place].susp, 2 SPRAY NARES DAILY PRN for ALLERGIES Ibuprofen (Ibuprofen) 200 Mg Capsule, 400 MG PO QID PRN for PAIN Allergies Coded Allergies: ENVIROMENTAL (Verified Allergy, Unknown, 06/07/19) A-FIB/CHADSVASC A-FIB History Current/History of A-Fib/PAF?: No CALE BHATIA MD Jul 15, 2019 17:15
[2019-07-15 20:00] VITALS: BP 120/70
[2019-07-15 20:58] LABS: INR 1.24; PROTHROMBIN TIME 15.3 SECONDS (11.8-14.0)
[2019-07-15 20:59] LABS: PARTIAL THROMBOPLASTIN TIME 49.8 SECONDS (25.0-38.4)
[2019-07-15] MEDS: ADVAIR HFA 230/21MCG INHALER INH SCH (21:05)
[2019-07-15] MEDS: RAMELTEON 8 MG TAB (ROZEREM) PO SCH (21:41)
[2019-07-15] MEDS: SIMVASTATIN 20 MG TAB PO SCH (21:41)
[2019-07-15] MEDS: lisinopriL 10 MG TAB PO SCH (21:41)
--- NOTE | 2019-07-15 21:58 | REPVR ---
PROCEDURE INFORMATION: Exam: US Duplex Lower Extremity Veins Exam date and time: 07/15/2019 8:59 PM Age: 69 years old Clinical indication: Other: Pe; Additional info: Assess for dvt TECHNIQUE: Imaging protocol: Real-time duplex ultrasound of the Lower Extremities with 2-D wang scale, color Doppler flow and spectral waveform analysis with image documentation. Complete exam focused on the bilateral lower extremity veins. COMPARISON: No relevant prior studies available. FINDINGS: Right deep veins: Unremarkable. The common femoral, femoral, proximal profunda femoral and popliteal veins are patent without thrombus. Normal Doppler waveforms. Normal compressibility and/or augmentation response. Right superficial veins: Saphenofemoral junction is patent without thrombus. Left deep veins: The common femoral, femoral, proximal profunda femoral veins are patent without thrombus. Occlusive thrombus in the left popliteal vein extending to the tibial peroneal trunk. Left superficial veins: Saphenofemoral junction is patent without thrombus. Soft tissues: Unremarkable. IMPRESSION: Left popliteal DVT. Electronically signed by: Miquel Gallardo On 07/15/2019 21:57:38 PM
[2019-07-16] VITALS (8 sets, daily range): BP systolic 116–165; BP diastolic 59–98
[2019-07-16 03:43] LABS: HEMATOCRIT 27.5 % (36.0-47.0); HEMOGLOBIN 9.3 g/dl (12.0-15.5); MEAN CORPUSCULAR HEMOGLOBIN 30.4 pg (27.0-33.0); MEAN CORPUSCULAR HGB CONC 33.8 g/dl (32.0-36.5); MEAN CORPUSCULAR VOLUME 89.9 fl (80.0-96.0); PLATELET COUNT, AUTOMATED 172 10^3/uL (150-450); RED BLOOD COUNT 3.06 10^6/uL (4.00-5.40); WHITE BLOOD COUNT 6.4 10^3/uL (4.0-10.0)
[2019-07-16] MEDS: HEPARIN DRIP 25,000 UNITS in IV 1 EA IV SCH ×2 (06:03→21:50)
--- NOTE | 2019-07-16 06:50 | ECHO ---
DATE OF SERVICE: 07/15/2019 REFERRING PHYSICIAN: Dr. Chisholm REASON FOR THE STUDY: Pulmonary embolism. ROOM NUMBER: [id number]. 2D MEASUREMENTS: LV: 4.5 cm LVPW: 0.7 cm Aorta: 3.2 cm LA: 3.4 cm IVC: 1.8 cm DOPPLER MEASUREMENTS: Peak velocity across the aortic valve: 1.4 m/s Peak velocity across the LVOT: 0.4 m/s Tricuspid valve velocity: 2.8 m/s 2D COMMENTS: 1. Normal left ventricular size and wall thickness but left ventricular systolic function appeared to be mildly to moderately depressed with an estimated left ventricular ejection fraction (LVEF) between 40-45%. 2. Normal left atrium. The right atrium and the right ventricle appeared to be mildly enlarged in limited use. The right ventricular free wall was not well visualized. 3. The atrial septum appeared to be normal without evidence of defect or shunt. 4. Normal aortic root. 5. No pericardial effusion seen. 6. Minimally calcified aortic valve with normal leaflet excursion. Mildly calcified mitral annulus with normal anterior mitral leaflet motion. Normal tricuspid valve. The pulmonic valve and proximal pulmonary artery branches were not well visualized. 7. The inferior vena cava was normal in size, central venous pressure might be elevated. DOPPLER: It detects mild mitral regurgitation, moderate tricuspid regurgitation, and trace aortic regurgitation. The calculated pulmonary artery systolic pressure varies between 30-40 mmHg. Abnormal relaxation pattern was noted across the mitral valve leaflets as well as the mitral valve annulus consistent with features of grade 1 left ventricular diastolic dysfunction. IMPRESSION: 1. Mild to moderate global left ventricular systolic dysfunction with diffuse hypokinesis. There are some features of grade 1 left ventricular diastolic dysfunction manifested by abnormal relaxation. 2. Aortic valve sclerosis with trace aortic radiation but no aortic stenosis. 3. Mitral annulus calcification with mild mitral regurgitation. 4. Moderate tricuspid regurgitation with mild pulmonary hypertension. The right heart chambers appear to be mildly enlarged in limited views. 5. The pulmonic valve and proximal pulmonary artery branches were not well visualized. MTDD
--- NOTE | 2019-07-16 07:36 | ECGEPIP ---
[facility] - ED Test Date: 2019-07-15 Pat Name: YAIR JERONIMO Department: Room: - Gender: Female Call Center Representative: carlos enriquemaeve : 1950 Requested By: NILESH Brown Order Number: [id number] Reading MD: Nilesh Guadalupe Measurements Intervals Clifford Rate: 90 P: 69 KS: 157 QRS: 26 QRSD: 89 T: 29 QT: 375 QTc: 459 Interpretive Statements SINUS RHYTHM with ventricular ectopy LOW QRS VOLTAGE IN PRECORDIAL LEADS Delayed anterior R wave progression Nonspecific ST-T wave abnormalities Similar to tracing done 06-07-19 Electronically Signed on 07-16-2019 7:36:48 EST by Nilesh Guadalupe
[2019-07-16] MEDS: ADVAIR HFA 230/21MCG INHALER INH SCH ×2 (07:45→20:48)
[2019-07-16 08:39] LABS: ALBUMIN 2.7 GM/DL (3.2-5.2); ALT/SGPT 19 U/L (12-78); BILIRUBIN,TOTAL 0.4 MG/DL (0.2-1.0); BLOOD UREA NITROGEN 12 MG/DL (7-18); CALCIUM LEVEL 8.3 MG/DL (8.8-10.2); CARBON DIOXIDE LEVEL 20 MEQ/L (21-32); CHLORIDE LEVEL 106 MEQ/L (98-107); CREATININE FOR GFR 0.88 MG/DL (0.55-1.30); GLOMERULAR FILTRATION RATE > 60.0 (>39); GLUCOSE, FASTING 138 MG/DL (70-100); MAGNESIUM LEVEL 2.2 MG/DL (1.8-2.4); POTASSIUM SERUM 4.3 MEQ/L (3.5-5.1); SODIUM LEVEL 136 MEQ/L (136-145); TOTAL PROTEIN 6.2 GM/DL (6.4-8.2)
[2019-07-16] MEDS: OMEPRAZOLE 20 MG CAP PO SCH (09:27)
[2019-07-16] MEDS: bisoproloL fumarate 5 MG TAB PO SCH (09:28)
[2019-07-16] MEDS: POTASSIUM CHLORIDE 10 MEQ SR TABLET PO SCH (09:28)
[2019-07-16] MEDS: LORATADINE 10 MG TAB PO SCH (09:28)
[2019-07-16] MEDS: ASPIRIN 81 MG ENTERIC TAB PO SCH (09:28)
[2019-07-16] MEDS: RAMELTEON 8 MG TAB (ROZEREM) PO SCH (20:31)
[2019-07-16] MEDS: lisinopriL 10 MG TAB PO SCH (20:32)
[2019-07-16] MEDS: SIMVASTATIN 20 MG TAB PO SCH (20:32)
--- NOTE | 2019-07-16 20:41 | IPNPDOC ---
Date Seen The patient was seen on 07/16/19. Progress Note HISTORY OF PRESENT ILLNESS: 69-year-old female with past medical history of breast cancer status post lumpectomy, radiation and currently on tamoxifen, hypertension, asthma, and hyperlipidemia presents from home with progressive shortness of breath. She started noticing lower extremity swelling with shortness of breath over the past few days, progressively worsening, to the point of developing shortness of breath even walking 10 feet. She reports being able to walk a city block a week ago, whereas now she can barely walk to the bathroom. She does have associated nonproductive cough with minimal chest discomfort and lower extremity swelling. In the ED, she is found to have large bilateral PEs. She was diagnosed with breast cancer in January 2019, status post lumpectomy followed by radiation treatment and currently on tamoxifen. She denies any nausea, vomiting, abdominal pain, diarrhea or constipation. 07/16/19 Significant improvement in dyspnea, lower extremity Doppler showed left poplit eal vein DVT, no other complaints at this time. She denies any chest pain, nausea, vomiting, abdominal pain, diarrhea or constipation. 10 point review of system is negative except for above PHYSICAL EXAMINATION: VITAL SIGNS: Please see below. GENERAL: No distress HEENT: Normocephalic, atraumatic, moist mucous membranes NECK: Supple CARDIOVASCULAR EXAMINATION: S1, S2, tachycardic RESPIRATORY EXAMINATION: Scattered rhonchi, no wheezing ABDOMINAL EXAMINATION: Soft, nontender, nondistended, positive bowel sounds EXTREMITIES: Bilateral lower extremity edema SKIN: No rash NEUROLOGICAL EXAMINATION: Alert and oriented 3, no focal deficits PSYCHIATRIC EXAMINATION: Calm and cooperative LABORATORY DATA: See below. IMAGING: CTA showing bilateral large pulmonary embolism MICROBIOLOGY: Please see below. ASSESSMENT: 69-year-old female with past medical history of breast cancer, hypertension, hyperlipidemia and asthma admitted for large bilateral PEs. PLAN: 1. Bilateral pulmonary embolism. Likely caused by malignancy/medication, hemodynamically stable, continue heparin drip, lower extremity Doppler showing left popliteal vein, tentatively plan for transition to oral anticoagulation tomorrow. PT eval requested 2. Breast cancer. Status post lumpectomy and radiation, hold tamoxifen. 3. Hypertension. Continue lisinopril and bisoprolol 4. Hyperlipidemia. Continue statin DVT prophylaxis: On heparin gtt. GI prophylaxis: Home PPI VS, I&O, 24H, Fishbone Vital Signs/I&O Vital Signs Date Time Temp Pulse Resp B/P (MAP) Pulse Ox O2 Delivery O2 Flow Rate FiO2 07/16/19 20:32 118/78 07/16/19 16:00 96.1 78 18 96 Room Air 07/16/19 08:00 1.0 I&O- Last 24 Hours up to 6 AM 07/16/19 06:00 Intake Total 414 ml Output Total 800 ml Balance -386 ml Laboratory Data 24H LABS Laboratory Tests 2 07/16/19 03:34: Nucleated Red Blood Cells % (auto) 0.0, Activated Partial Thromboplast Time 102.8H, Anion Gap 10, Glomerular Filtration Rate > 60.0, Calcium Level 8.3L, Magnesium Level 2.2, Total Bilirubin 0.4#, Aspartate Amino Transf (AST/SGOT) 17, Alanine Aminotransferase (ALT/SGPT) 19, Alkaline Phosphatase 46, Total Protein 6.2L, Albumin 2.7L, Albumin/Globulin Ratio 0.77L 07/16/19 09:28: Activated Partial Thromboplast Time 79.4H CBC/BMP Laboratory Tests 07/16/19 03:34 Microbiology Microbiology 07/15/19 Blood Culture - Preliminary, Resulted No growth after 24 hours . All specim... 07/15/19 Blood Culture - Preliminary, Resulted No growth after 24 hours . All specim... CALE BHATIA MD Jul 16, 2019 20:41
[2019-07-17 04:00] VITALS: BP 122/68
[2019-07-17 05:47] LABS: MEAN CORPUSCULAR HEMOGLOBIN 30.2 pg (27.0-33.0); MEAN CORPUSCULAR HGB CONC 32.1 g/dl (32.0-36.5); PLATELET COUNT, AUTOMATED 176 10^3/uL (150-450); RED BLOOD COUNT 2.98 10^6/uL (4.00-5.40); WHITE BLOOD COUNT 5.1 10^3/uL (4.0-10.0)
[2019-07-17 06:08] LABS: CALCIUM LEVEL 8.1 MG/DL (8.8-10.2); CREATININE FOR GFR 1.01 MG/DL (0.55-1.30); GLOMERULAR FILTRATION RATE 57.7 (>39); PHOSPHORUS LEVEL 2.8 MG/DL (2.5-4.9)
[2019-07-17] MEDS: ADVAIR HFA 230/21MCG INHALER INH SCH (07:20)
[2019-07-17 08:00] VITALS: BP 138/80
[2019-07-17] MEDS: POTASSIUM CHLORIDE 10 MEQ SR TABLET PO SCH (08:05)
[2019-07-17] MEDS: OMEPRAZOLE 20 MG CAP PO SCH (08:05)
[2019-07-17 08:06] VITALS: BP 138/80
[2019-07-17] MEDS: ASPIRIN 81 MG ENTERIC TAB PO SCH (08:06)
[2019-07-17] MEDS: bisoproloL fumarate 5 MG TAB PO SCH (08:06)
[2019-07-17] MEDS: LORATADINE 10 MG TAB PO SCH (08:06)
[2019-07-17] MEDS ORDERED: ELIQ5TAB PO (08:39)
[2019-07-17] MEDS ORDERED: APIXABAN 5 MG TAB (ELIQUIS) PO SCH (09:00)
--- NOTE | 2019-07-17 10:58 | DS.PDOC ---
Discharge Summary General Date of Admission Jul 15, 2019 at 12:41 Date of Discharge 07/17/19 Attending Physician: CALE BHATIA MD Discharge Summary PROCEDURES PERFORMED DURING STAY: None. ADMITTING DIAGNOSES: 1. Bilateral PE. DISCHARGE DIAGNOSES: 1. Bilateral PE. COMPLICATIONS/CHIEF COMPLAINT: Breast Ca Hyperlipidemia Hypertension Pe. HISTORY OF PRESENT ILLNESS: 69-year-old female with past medical history of breast cancer status post lumpectomy, radiation and currently on tamoxifen with strong family history of PE was admitted for large bilateral PEs. She was treated with heparin gtt, lower extremity Doppler showed left popliteal DVT. Patient has received 48 hours of anticoagulation with heparin, evaluated and cleared physical therapy without any difficulty, currently asymptomatic, and saturating well on room air. She has no complaints at this time, tolerating t, switched to Eliquis prior to discharge. Patient is advised to take Eliquis 10 mg twice a day for 7 days followed by 5 mg twice a day for at least 3 months. She is advised to follow up with lever operator oncologist regarding duration of anticoagulation and hypercoagulable workup. Patient's TTE showed slight reduction in ejection fraction 40-45%, reports no prior cardiac history, advised to follow up with brush material preparer in the outpatient setting. She is currently clinically without recent for discharge and outpatient follow-up. HOSPITAL COURSE: As above. DISCHARGE MEDICATIONS: Please see below. ALLERGIES: Please see below. PHYSICAL EXAMINATION: VITAL SIGNS: Please see below. GENERAL: No distress HEENT: Normocephalic, atraumatic, moist mucous membranes NECK: Supple CARDIOVASCULAR EXAMINATION: S1, S2, tachycardic RESPIRATORY EXAMINATION: Scattered rhonchi, no wheezing ABDOMINAL EXAMINATION: Soft, nontender, nondistended, positive bowel sounds EXTREMITIES: Bilateral lower extremity edema SKIN: No rash NEUROLOGICAL EXAMINATION: Alert and oriented 3, no focal deficits PSYCHIATRIC EXAMINATION: Calm and cooperative LABORATORY DATA: Please see below. IMAGING: CTA showing large bilateral PEs. Lower extremity Doppler showing left popliteal vein DVT. TTE with ejection fraction 40-45%. PROGNOSIS: Fair ACTIVITY: As tolerated. DIET: Cardiac DISCHARGE PLAN: Follow-up with oriental medicine practitioner, lever operator/oncologist and PCP in 1-2 weeks DISPOSITION: Home. DISCHARGE INSTRUCTIONS: 1. As above. DISCHARGE CONDITION: Stable. TIME SPENT ON DISCHARGE: Greater than 36 minutes. Vital Signs/I&Os Vital Signs Date Time Temp Pulse Resp B/P (MAP) Pulse Ox O2 Delivery O2 Flow Rate FiO2 07/17/19 08:06 72 138/80 07/17/19 08:00 97.5 18 93 Room Air 07/16/19 08:00 1.0 I&O- Last 24 Hours up to 6 AM 07/17/19 06:00 Intake Total 1384 ml Output Total 75 ml Balance 1309 ml Laboratory Data Labs 24H Laboratory Tests 2 07/17/19 05:30: Nucleated Red Blood Cells % (auto) 0.0, Activated Partial Thromboplast Time 77.3H, Anion Gap 9, Glomerular Filtration Rate 57.7, Calcium Level 8.1L, Phosphorus Level 2.8 CBC/BMP Laboratory Tests 07/17/19 05:30 Microbiology Microbiology 07/15/19 Blood Culture - Preliminary, Resulted No Growth after 48 hours. All Specime... 07/15/19 Blood Culture - Preliminary, Resulted No Growth after 48 hours. All Specime... Discharge Medications Scheduled Apixaban (Eliquis) 5 Mg Tablet, 10 MG PO BID 10 mg PO BID x7 days total followed by 5 mg BID. Aspirin (Aspirin EC) 81 Mg Tablet.dr, 81 MG PO DAILY, (Reported) Bisoprolol/Hydrochlorothiazide (Bisoprolol-Hctz 5-6.25 mg Tab) 1 Each Tablet, 1 TAB PO DAILY, (Reported) Lisinopril (Lisinopril) 10 Mg Tablet, 10 MG PO QHS, (Reported) Loratadine (Loratadine) 10 Mg Tablet, 10 MG PO DAILY, (Reported) Omeprazole (Omeprazole) 40 Mg Capsule.dr, 40 MG PO DAILY, (Reported) Potassium Chloride (Potassium Chloride) 10 Meq Tab.er.prt, 20 MEQ PO DAILY, (Reported) Salmeterol/Fluticasone (Advair 250-50 Diskus) 1 Each Blst.w.dev, 1 PUFF INH BID, (Reported) Simvastatin (Simvastatin) 20 Mg Tablet, 20 MG PO QHS, (Reported) Tamoxifen Citrate (Tamoxifen Citrate) 20 Mg Tablet, 1 TAB PO DAILY Scheduled PRN Albuterol Sulfate (Proair Hfa) 8.5 Gm Hfa.aer.ad, 2 PUFF INH QID PRN for SHORTNESS OF BREATH, (Reported) Diclofenac Sodium (Voltaren) 100 Gm Gel..gram., 1 DOSE TOP TID PRN for PAIN, (R eported) APPLY TO ANY AREA OF PAIN Fluticasone Propionate (Flonase Allergy Relief) 9.9 Ml [place].susp, 2 SPRAY NARES DAILY PRN for ALLERGIES, (Reported) Allergies Coded Allergies: ENVIROMENTAL (Verified Allergy, Unknown, 06/07/19) CALE BHATIA MD Jul 17, 2019 10:58
[2019-07-17] MEDS ORDERED: POTA10808 PO (11:18)
== END 2019-07-17 13:00 | disposition home or self-care (01) | DRG 299 ==
LOC: M ED 07:50 → M ED INP 12:41 → M PCU 13:51
PROVIDERS: ADMIT Internal Medicine; ATTEND Internal Medicine
DX: I82.432 Acute embolism and thrombosis of left popliteal vein (principal); I26.99 Other pulmonary embolism without acute cor pulmonale; C50.919 Malignant neoplasm of unspecified site of unspecified female breast; I10 Essential (primary) hypertension; E78.5 Hyperlipidemia, unspecified; Z79.899 Other long term (current) drug therapy; Z79.82 Long term (current) use of aspirin

== ENCOUNTER → 2019-08-25 | Outpatient (CLI) | payer MEDICARE, OTHER ==
[~2019-08-25] MED LIST changes: +ARIM1TAB5 PO; +ASPI81CH33 PO; +ASPI81TA26 PO; +ELIQ5TAB PO; +FLON1SPR NARES; +IBUP200C25 PO; +LORA-674 PO; +POTA10808 PO; +POTA10TA17 PO; +POTA20TA6 PO; +VITA1CHW7 PO; +VITA50005 PO; +VOLT1GEL15 TOP
[2019-08-25 12:07] LABS: BLOOD UREA NITROGEN 13 MG/DL (7-18); CALCIUM LEVEL 8.9 MG/DL (8.8-10.2); CARBON DIOXIDE LEVEL 26 MEQ/L (21-32); CHLORIDE LEVEL 109 MEQ/L (98-107); CREATININE FOR GFR 0.92 MG/DL (0.55-1.30); GLOMERULAR FILTRATION RATE > 60.0 (>39); GLUCOSE, FASTING 104 MG/DL (70-100); POTASSIUM SERUM 4.1 MEQ/L (3.5-5.1); SODIUM LEVEL 142 MEQ/L (136-145)
== END ==
LOC: M PLALAB 09:36
PROVIDERS: ATTEND Nurse Practitioner Family
DX: I10 Essential (primary) hypertension (principal)

== ENCOUNTER → 2019-12-17 | Outpatient (CLI) | payer MEDICARE, OTHER ==
[~2019-12-17] MED LIST changes: +3ML25MIS SC; +CYAN1000VL IM; +FOLI1TAB11 PO; +POTA1TAB23 PO; +VITA-113 SL
[2019-12-17 10:47] LABS: BASO % 0.4 % (0.0-1.0); EOS # 0.1 10^3/uL (0.0-0.5); EOS % 3.1 % (0.0-3.0); HEMATOCRIT 34.2 % (36.0-47.0); HEMOGLOBIN 11.3 g/dl (12.0-15.5); LYMPH # 1.3 10^3/uL (1.5-5.0); LYMPH % 27.9 % (24.0-44.0); MEAN CORPUSCULAR HEMOGLOBIN 30.5 pg (27.0-33.0); MEAN CORPUSCULAR VOLUME 92.4 fl (80.0-96.0); MONO # 0.4 10^3/uL (0.0-0.8); MONO % 8.1 % (0.0-5.0); NEUTROPHILS # 2.8 10^3/uL (1.5-8.5); NEUTROPHILS % 60.3 % (36.0-66.0); PLATELET COUNT, AUTOMATED 231 10^3/uL (150-450); WHITE BLOOD COUNT 4.6 10^3/uL (4.0-10.0)
[2019-12-17 11:48] LABS: ALBUMIN 3.4 GM/DL (3.2-5.2); BILIRUBIN,TOTAL 0.5 MG/DL (0.2-1.0); CALCIUM LEVEL 8.8 MG/DL (8.8-10.2); CREATININE FOR GFR 1.05 MG/DL (0.55-1.30); FOLATE 7.5 NG/ML; GLOMERULAR FILTRATION RATE 55.2 (>39); PERCENT SATURATION 17.3 % (13.2-45.0); TOTAL PROTEIN 7.2 GM/DL (6.4-8.2)
== END ==
LOC: M PLALAB 09:37
PROVIDERS: ATTEND Internal Medicine Hematology & Oncology
DX: D05.11 Intraductal carcinoma in situ of right breast (principal)

== ENCOUNTER → 2020-01-10 | Outpatient (CLI) | payer MEDICARE, OTHER | LOC: M LABSMTC 10:30 | PROVIDERS: ATTEND Anesthesiology | DX: Z01.818 Encounter for other preprocedural examination (principal); Z11.59 Encounter for screening for other viral diseases | CPT/HCPCS: C9803; U0003 ==

== ENCOUNTER 2020-01-13 11:12 | Day surgery (SDC) | payer MEDICARE, OTHER ==
[~2020-01-13] VITALS: Ht 162.6 cm; Wt 107.0 kg
[~2020-01-13 11:12] MED LIST changes: -ASPI81TA85 PO; +ASPI81TA86 PO; +NS 1,000 ML IV ONE
[2020-01-13] MEDS ORDERED: LIDOCAINE 2% 100MG/5ML SDV (FOR ANES.) As Ordered ONE (13:45)
[2020-01-13] MEDS ORDERED: fentaNYL 100 MCG/2 ML INJECTION (J3010) As Ordered ONE (13:45)
[2020-01-13] MEDS ORDERED: propofoL 500 MG/50 ML VIAL As Ordered ONE (13:47)
[2020-01-13] MEDS ORDERED: PHENYLephrine HCL 500 MCG/5 ML (100MCG/ML) SYRINGE (J2370) As Ordered ONE (14:43)
[2020-01-13] MEDS ORDERED: propofoL 200 MG/20 ML VIAL As Ordered ONE (15:07)
--- NOTE | 2020-01-13 15:17 | ROOR ---
Patient Name: Kami Gallagher Procedure Date: 01/13/2020 2:22 PM Date of : 1950 Age: 69 Room: [facility] Gender: Female Note Status: Finalized Procedure: Upper GI endoscopy Indications: Suspected alcoholic gastritis, Suspected precancerous lesions of the stomach Providers: Finn Iyer MD Referring MD: Susan Hardin Requesting Provider: Medicines: Monitored Anesthesia Care Complications: No immediate complications. Procedure: Pre-Anesthesia Assessment: - Prior to the procedure, a History and Physical was performed, and patient medications and allergies were reviewed. The patient is competent. The risks and benefits of the procedure and the sedation options and risks were discussed with the patient. All questions were answered and informed consent was obtained. Patient identification and proposed procedure were verified by the physician, the nurse and the anesthesiologist in the procedure room. Mental Status Examination: alert and oriented. Airway Examination: normal oropharyngeal airway and neck mobility. Respiratory Examination: clear to auscultation. CV Examination: normal. Prophylactic Antibiotics: The patient does not require prophylactic antibiotics. Prior Anticoagulants: The patient has taken Eliquis (apixaban), last dose was 2 days prior to procedure. ASA Grade Assessment: III - A patient with severe systemic disease. After reviewing the risks and benefits, the patient was deemed in satisfactory condition to undergo the procedure. The anesthesia plan was to use monitored anesthesia care (MAC). Immediately prior to administration of medications, the patient was re-assessed for adequacy to receive sedatives. The heart rate, respiratory rate, oxygen saturations, blood pressure, adequacy of pulmonary ventilation, and response to care were monitored throughout the procedure. The physical status of the patient was re-assessed after the procedure. The Endoscope was introduced through the mouth, and advanced to the second part of duodenum. The upper GI endoscopy was accomplished without difficulty. The patient tolerated the procedure well. Findings: One tongue of salmon-colored mucosa was present from 37 to 39 cm. No other visible abnormalities were present. The maximum longitudinal extent of these esophageal mucosal changes was 2 cm in length. Biopsies were taken with a cold forceps for histology. Verification of patient identification for the specimen was done by the physician and nurse using the patient's name, date and medical record number. Estimated blood loss was minimal. A small hiatal hernia was present. Scattered mild inflammation characterized by erythema and granularity was found in the gastric antrum. Two biopsies were obtained with cold forceps for histology in the gastric antrum, as well as four biopsies in the gastric body. The duodenal bulb and second portion of the duodenum were normal. Biopsies for histology were taken with a cold forceps for evaluation of celiac disease. Impression: - Higdon-colored mucosa suspicious for short-segment Farah's esophagus. Biopsied. - Small hiatal hernia. - Gastritis. - Normal duodenal bulb and second portion of the duodenum. Biopsied. - Biopsies performed in the gastric antrum and in the gastric body. Recommendation: - Patient has a contact number available for emergencies. The signs and symptoms of potential delayed complications were discussed with the patient. Return to normal activities tomorrow. Written discharge instructions were provided to the patient. - High fiber diet. - Continue present medications. - Resume Eliquis (apixaban) at prior dose tomorrow. - Await pathology results. - Follow an antireflux regimen. - Telephone GI clinic for pathology results in 2 weeks. - Return to primary care physician. Finn Iyer MD Finn Iyer MD 01/13/2020 3:16:45 PM Electronically signed by Finn Iyer MD Number of Addenda: 0 Note Initiated On: 01/13/2020 2:22 PM Estimated Blood Loss: Estimated blood loss: none.
--- NOTE | 2020-01-13 15:23 | ROOR ---
Patient Name: aKmi Gallagher Procedure Date: 01/13/2020 2:23 PM Date of : 1950 Age: 69 Room: [facility] Gender: Female Note Status: Finalized Procedure: Colonoscopy Indications: Screening for colorectal malignant neoplasm Providers: Finn Iyer MD Referring MD: Susan Hardin Requesting Provider: Medicines: Monitored Anesthesia Care Complications: No immediate complications. Procedure: Pre-Anesthesia Assessment: - Prior to the procedure, a History and Physical was performed, and patient medications and allergies were reviewed. The patient is competent. The risks and benefits of the procedure and the sedation options and risks were discussed with the patient. All questions were answered and informed consent was obtained. Patient identification and proposed procedure were verified by the physician, the nurse and the anesthesiologist in the procedure room. Mental Status Examination: alert and oriented. Airway Examination: normal oropharyngeal airway and neck mobility. Respiratory Examination: clear to auscultation. CV Examination: normal. Prophylactic Antibiotics: The patient does not require prophylactic antibiotics. Prior Anticoagulants: The patient has taken no previous anticoagulant or antiplatelet agents. ASA Grade Assessment: III - A patient with severe systemic disease. After reviewing the risks and benefits, the patient was deemed in satisfactory condition to undergo the procedure. The anesthesia plan was to use monitored anesthesia care (MAC). Immediately prior to administration of medications, the patient was re-assessed for adequacy to receive sedatives. The heart rate, respiratory rate, oxygen saturations, blood pressure, adequacy of pulmonary ventilation, and response to care were monitored throughout the procedure. The physical status of the patient was re-assessed after the procedure. The Colonoscope was introduced through the anus and advanced to the cecum, identified by appendiceal orifice and ileocecal valve. The colonoscopy was performed without difficulty. The patient tolerated the procedure well. The quality of the bowel preparation was good except the ascending colon was fair. The ileocecal valve, appendiceal orifice, and rectum were photographed. Scope insertion time was 4 minutes. Scope withdrawal time was 9 minutes. The total duration of the procedure was 14 minutes. Findings: The perianal and digital rectal examinations were normal. A moderate amount of semi-liquid stool was found from ascending colon to cecum, interfering with visualization. Lavage of the area was performed using a large amount of sterile water, resulting in clearance with fair visualization. Four sessile polyps were found from the sigmoid to the ascending colon. The polyps were 3 to 5 mm in size. These polyps were removed with a cold biopsy forceps. Resection and retrieval were complete. Verification of patient identification for the specimen was done by the physician and nurse using the patient's name, date and medical record number. Estimated blood loss was minimal. There was a large lipoma, 25 mm in diameter, in the transverse colon. Multiple small and large-mouthed diverticula were found in the sigmoid colon. There was no evidence of diverticular bleeding. Non-bleeding external and internal hemorrhoids were found during retroflexion. The hemorrhoids were medium-sized. Impression: - Stool from ascending colon to cecum. - Four 3 to 5 mm polyps from sigmoid to ascending colon, removed with a cold biopsy forceps. Resected and retrieved. - Large lipoma in the transverse colon. - Moderate diverticulosis in the sigmoid colon. There was no evidence of diverticular bleeding. - Non-bleeding external and internal hemorrhoids. Recommendation: - Patient has a contact number available for emergencies. The signs and symptoms of potential delayed complications were discussed with the patient. Return to normal activities tomorrow. Written discharge instructions were provided to the patient. - High fiber diet. - Continue present medications. - Resume Eliquis (apixaban) at prior dose tomorrow. Refer to primary physician for further adjustment of therapy. - Await pathology results. - Repeat colonoscopy in 3 - 5 years for surveillance based on pathology results. - Telephone GI clinic for pathology results in 2 weeks. - Return to primary care physician. Finn Iyer MD Finn Iyer MD 01/13/2020 3:22:57 PM Electronically signed by Finn Iyer MD Number of Addenda: 0 Note Initiated On: 01/13/2020 2:23 PM Estimated Blood Loss: Estimated blood loss was minimal.
[2020-01-13 15:39] VITALS: BP 178/75
[2020-05-24] MEDS ORDERED: ARIM1TAB5 PO (15:17)
== END 2020-01-13 15:53 | disposition home or self-care (01) ==
LOC: M OPP 11:12
PROVIDERS: ATTEND Internal Medicine Gastroenterology
DX: Z12.11 Encounter for screening for malignant neoplasm of colon (principal); D12.5 Benign neoplasm of sigmoid colon; D12.2 Benign neoplasm of ascending colon; K57.90 Diverticulosis of intestine, part unspecified, without perforation or abscess without bleeding; D17.9 Benign lipomatous neoplasm, unspecified; K22.8 Other specified diseases of esophagus; K44.9 Diaphragmatic hernia without obstruction or gangrene; K31.89 Other diseases of stomach and duodenum; K29.70 Gastritis, unspecified, without bleeding
CPT/HCPCS: 43239; 45380; 88305; J2370; J3010

== ENCOUNTER → 2020-03-05 | Outpatient (CLI) | payer MEDICARE, OTHER ==
[~2020-03-05] MED LIST changes: -NS 1,000 ML IV ONE
[2020-03-05 13:00] LABS: CHOLESTEROL RISK RATIO 2.346 (<5)
== END ==
LOC: M PLALAB 08:33
PROVIDERS: ATTEND Nurse Practitioner Family
DX: E78.5 Hyperlipidemia, unspecified (principal)

== ENCOUNTER → 2021-01-11 | Outpatient (CLI) | payer MEDICARE, OTHER ==
[~2021-01-11] MED LIST changes: -ALEN70TA74 PO; +ALEN70TA82 PO; +COVI100V IM; +ERGO500029 PO; +FOSA70TA PO; +LISI10TA22 PO; -LISI10TA4 PO; +OMEP40CA4 PO; -OMEP40CA97 PO; -VITA50005 PO
--- NOTE | 2021-01-11 13:19 | DEXAMM ---
INDICATION: OSTEOPENIA,DCIS RT BREAST. COMPARISON: Comparison study December 11, 2007, December 21, 2006, and November 17, 2004.. TECHNIQUE: Bone density was measured using dual-energy x-ray absorptionmetry (DEXA). FINDINGS: AP SPINE L1-L4 BMD 1.292 g/cm2 Young Adult T-Score 0.8 Age Matched Z-Score 2.5. LT FEMUR, TOTAL BMD 0.973 g/cm2 Young Adult T-Score -0.3 Age Matched Z-Score 1.3. LT NECK BMD 0.907 g/cm2 Young Adult T-Score -0.9 Age Matched Z-Score 0.8. RT FEMUR, TOTAL BMD 0.996 g/cm2 Young Adult T-Score is -0.1 Age Matched Z-Score 1.5. RT NECK BMD 0.919 g/cm2 Young Adult T-Score -0.9 Age Matched Z-Score 0 point. IMPRESSION: There is normal bone density of the spine. There is the normal bone density of the left hip. There is normal bone density of the right hip. The density of the spine has increased 17.3% since the initial exam on December 11, 2007. The density of the left hip has decreased 4.6% since initial exam on November 18, 2004. The density of the left hip has increased 2.6% since most recent exam on December 11, 2007. The density of the right hip has decreased 3.9% since the initial exam on December 11, 2007. FOLLOW-UP: Recommendation for the next bone density exam: 5 years. <Electronically signed by Johnathan Ibrahim > 01/11/21 [id number]
== END ==
LOC: M WHC 11:22
PROVIDERS: ATTEND Internal Medicine Medical Oncology
DX: M85.89 Other specified disorders of bone density and structure, multiple sites (principal); D05.11 Intraductal carcinoma in situ of right breast

== ENCOUNTER 2021-11-19 17:07 | Emergency (ER) | payer MEDICARE, OTHER ==
[~2021-11-19] VITALS: Ht 165.1 cm; Wt 113.6 kg
[~2021-11-19 17:07] MED LIST changes: +BISO1TAB18 PO; -BISO5TAB2 PO; +DICL20GE TP; +POTA-151 PO; -POTA20TA6 PO
[2021-11-19 17:22] VITALS: BP 114/85
== END 2021-11-19 18:55 | disposition home or self-care (01) ==
LOC: M ED 17:07
DX: M23.92 Unspecified internal derangement of left knee (principal); X50.0XXA Overexertion from strenuous movement or load, initial encounter; Y92.9 Unspecified place or not applicable; Y93.9 Activity, unspecified; Y99.9 Unspecified external cause status; M17.12 Unilateral primary osteoarthritis, left knee; E66.9 Obesity, unspecified; I10 Essential (primary) hypertension; E78.5 Hyperlipidemia, unspecified; Z86.718 Personal history of other venous thrombosis and embolism; C50.911 Malignant neoplasm of unspecified site of right female breast; Z79.899 Other long term (current) drug therapy

== ENCOUNTER 2022-01-07 07:42 | Emergency (ER) | payer MEDICARE, OTHER ==
[~2022-01-07] VITALS: Ht 162.6 cm; Wt 108.7 kg
[2022-01-07] MEDS ORDERED: ULTR50TA8 PO (11:50)
[2022-01-07 12:04] VITALS: BP 143/87
== END 2022-01-07 12:05 | disposition home or self-care (01) ==
LOC: M ED 07:42
DX: M51.36 Other intervertebral disc degeneration, lumbar region (principal); M47.817 Spondylosis without myelopathy or radiculopathy, lumbosacral region; K21.9 Gastro-esophageal reflux disease without esophagitis; I10 Essential (primary) hypertension; Z79.51 Long term (current) use of inhaled steroids; Z79.811 Long term (current) use of aromatase inhibitors; Z79.899 Other long term (current) drug therapy

== ENCOUNTER → 2022-02-20 | Outpatient (CLI) | payer MEDICARE, OTHER ==
[~2022-02-20] MED LIST changes: +IRON PO; +MAGN200T PO; +POTA-150 PO; -POTA10TA17 PO; +ULTR50TA8 PO
[2022-02-20 14:08] LABS: BASO # 0.1 10^3/uL (0.0-0.2); BASO % 0.8 % (0.0-1.0); EOS # 0.1 10^3/uL (0.0-0.5); EOS % 1.2 % (0.0-3.0); HEMATOCRIT 36.6 % (36.0-47.0); LYMPH # 1.2 10^3/uL (1.5-5.0); LYMPH % 20.3 % (24.0-44.0); MEAN CORPUSCULAR HGB CONC 32.8 g/dl (32.0-36.5); MEAN CORPUSCULAR VOLUME 94.6 fl (80.0-96.0); MONO # 0.4 10^3/uL (0.0-0.8); MONO % 6.4 % (2.0-8.0); NEUTROPHILS # 4.3 10^3/uL (1.5-8.5); NEUTROPHILS % 70.8 % (36.0-66.0); PLATELET COUNT, AUTOMATED 276 10^3/uL (150-450); RED BLOOD COUNT 3.87 10^6/uL (4.00-5.40); WHITE BLOOD COUNT 6.1 10^3/uL (4.0-10.0)
[2022-02-20 16:06] LABS: ALBUMIN 3.6 GM/DL (3.2-5.2); BILIRUBIN,TOTAL 0.7 MG/DL (0.2-1.0); CREATININE FOR GFR 1.08 MG/DL (0.55-1.30); GLOMERULAR FILTRATION RATE 53.1 (>39); PERCENT SATURATION 16.6 % (13.2-45.0); POTASSIUM SERUM 3.8 MEQ/L (3.5-5.1); TOTAL PROTEIN 6.9 GM/DL (6.4-8.2)
== END ==
LOC: M PLALAB 09:49
PROVIDERS: ATTEND Internal Medicine Medical Oncology
DX: E61.1 Iron deficiency (principal)

== ENCOUNTER → 2022-03-10 | Outpatient (CLI) | payer MEDICARE, OTHER ==
[2022-03-10 16:05] LABS: BASO % 0.6 % (0.0-1.0); EOS # 0.1 10^3/uL (0.0-0.5); EOS % 1.6 % (0.0-3.0); HEMATOCRIT 35.1 % (36.0-47.0); HEMOGLOBIN 11.6 g/dl (12.0-15.5); LYMPH # 1.2 10^3/uL (1.5-5.0); LYMPH % 22.5 % (24.0-44.0); MEAN CORPUSCULAR HEMOGLOBIN 30.9 pg (27.0-33.0); MEAN CORPUSCULAR VOLUME 93.4 fl (80.0-96.0); MONO # 0.3 10^3/uL (0.0-0.8); MONO % 6.6 % (2.0-8.0); NEUTROPHILS # 3.5 10^3/uL (1.5-8.5); NEUTROPHILS % 68.3 % (36.0-66.0); PLATELET COUNT, AUTOMATED 267 10^3/uL (150-450); RED BLOOD COUNT 3.76 10^6/uL (4.00-5.40); WHITE BLOOD COUNT 5.2 10^3/uL (4.0-10.0)
[2022-03-10 16:29] LABS: ALBUMIN 3.7 GM/DL (3.2-5.2); PERCENT SATURATION 18.9 % (13.2-45.0)
== END ==
LOC: M PLALAB 11:43
PROVIDERS: ATTEND Orthopaedic Surgery
DX: Z00.00 Encounter for general adult medical examination without abnormal findings (principal); M17.11 Unilateral primary osteoarthritis, right knee; Z79.899 Other long term (current) drug therapy; M25.50 Pain in unspecified joint

== ENCOUNTER → 2022-03-10 | Outpatient (CLI) | payer MEDICARE, OTHER | LOC: M PLAIMG 11:40 | PROVIDERS: ATTEND Nurse Practitioner Adult Health | DX: J45.30 Mild persistent asthma, uncomplicated (principal) ==

== ENCOUNTER → 2022-03-24 | Outpatient (CLI) | payer MEDICARE, OTHER ==
[~2022-03-24] MED LIST changes: +ALEN70TA87 PO; -FOSA70TA PO
[2022-03-24 11:43] LABS: BLOOD UREA NITROGEN 13 MG/DL (7-18); CALCIUM LEVEL 9.6 MG/DL (8.8-10.2); CARBON DIOXIDE LEVEL 29 MEQ/L (21-32); CHLORIDE LEVEL 95 MEQ/L (98-107); CHOLESTEROL LEVEL 162 MG/DL (<200); CREATININE FOR GFR 0.93 MG/DL (0.55-1.30); GLOMERULAR FILTRATION RATE > 60.0 (>39); GLUCOSE, FASTING 102 MG/DL (70-100); HDL CHOLESTEROL 75 MG/DL (>40); LDL CHOLESTEROL 67 MG/DL (<100); NON-HDL-C 87 MG/DL; POTASSIUM SERUM 3.4 MEQ/L (3.5-5.1); SODIUM LEVEL 132 MEQ/L (136-145); TRIGLYCERIDES LEVEL 98 MG/DL (<150)
== END ==
LOC: M PLALAB 07:39
PROVIDERS: ATTEND Nurse Practitioner Family
DX: I48.0 Paroxysmal atrial fibrillation (principal); E78.49 Other hyperlipidemia

== ENCOUNTER → 2022-04-04 | Outpatient (CLI) | payer MEDICARE, OTHER | LOC: M WHC 13:23 | PROVIDERS: ATTEND Internal Medicine | DX: Z79.811 Long term (current) use of aromatase inhibitors (principal); Z85.3 Personal history of malignant neoplasm of breast ==

== ENCOUNTER → 2022-05-03 | Outpatient (REF) | payer MEDICARE, OTHER ==
[2022-05-03 15:26] LABS: PERCENT SATURATION 14.2 % (13.2-45.0)
== END ==
LOC: M LAB REF 12:47
PROVIDERS: ATTEND Internal Medicine
DX: D50.9 Iron deficiency anemia, unspecified (principal)

== ENCOUNTER → 2022-05-15 | Outpatient (CLI) | payer MEDICARE, OTHER ==
[~2022-05-15] MED LIST changes: +ALBU8.5H INH; +AMIO200T49 PO; +ANAS1TAB2 PO; +FERR32TA PO; +FURO20TA2 PO; +METO1TAB7 PO; +OMEP40CA5 PO; +VITA250T4 PO
== END ==
LOC: M LABSMTC 10:03
PROVIDERS: ATTEND Anesthesiology
DX: Z01.812 Encounter for preprocedural laboratory examination (principal); Z20.822 Contact with and (suspected) exposure to COVID-19

== ENCOUNTER 2022-05-18 06:03 | Day surgery (SDC) | payer MEDICARE, OTHER ==
[~2022-05-18] VITALS: Ht 162.6 cm; Wt 106.6 kg
[2022-05-18] MEDS ORDERED: propofoL 200 MG/20 ML VIAL As Ordered ONE (07:02)
[2022-05-18] MEDS ORDERED: fentaNYL 100 MCG/2 ML INJECTION As Ordered ONE (07:02)
[2022-05-18] MEDS ORDERED: ONDANSETRON 4MG 2ML VIAL As Ordered ONE (07:17)
[2022-05-18] MEDS ORDERED: ONDANSETRON 4MG 2ML VIAL IV ONE (07:30)
[2022-05-18] MEDS ORDERED: ONDANSETRON 4MG 2ML VIAL IV PRN (08:00)
[2022-05-18 08:20] VITALS: BP 156/79
== END 2022-05-18 08:58 | disposition home or self-care (01) ==
LOC: M SDC 06:03
PROVIDERS: ATTEND Internal Medicine Cardiovascular Disease
DX: I48.91 Unspecified atrial fibrillation (principal); I10 Essential (primary) hypertension; E78.5 Hyperlipidemia, unspecified; I73.9 Peripheral vascular disease, unspecified; K21.9 Gastro-esophageal reflux disease without esophagitis; J45.909 Unspecified asthma, uncomplicated; Z79.01 Long term (current) use of anticoagulants; G47.33 Obstructive sleep apnea (adult) (pediatric); Z86.718 Personal history of other venous thrombosis and embolism; Z86.711 Personal history of pulmonary embolism; Z87.891 Personal history of nicotine dependence; Z79.51 Long term (current) use of inhaled steroids; J30.2 Other seasonal allergic rhinitis; Z92.3 Personal history of irradiation; Z85.3 Personal history of malignant neoplasm of breast
CPT/HCPCS: 92960; 93005; J2405; J3010

== ENCOUNTER → 2022-05-25 | Outpatient (REF) | payer MEDICARE, OTHER ==
[~2022-05-25] MED LIST changes: +GNP250TA9 PO; +METO1TAB33 PO; +[UNRECOGNIZED DRUG - CODE] XX
== END ==
LOC: M SFHCWAGY 13:18
PROVIDERS: ATTEND Specialist
DX: Z01.419 Encounter for gynecological examination (general) (routine) without abnormal findings (principal); Z12.4 Encounter for screening for malignant neoplasm of cervix
CPT/HCPCS: 87624; G0123

== ENCOUNTER 2022-05-26 08:58 | Inpatient (IN) | payer MEDICARE, OTHER ==
[~2022-05-26 08:58] MED LIST changes: -GNP250TA9 PO; -METO1TAB33 PO; -[UNRECOGNIZED DRUG - CODE] XX
[2022-05-26 09:34] LABS: BASO % 0.3 % (0.0-1.0); EOS # 0.1 10^3/uL (0.0-0.5); EOS % 1.9 % (0.0-3.0); HEMATOCRIT 36.3 % (36.0-47.0); HEMOGLOBIN 11.7 g/dl (12.0-15.5); LYMPH % 15.8 % (24.0-44.0); MEAN CORPUSCULAR HGB CONC 32.2 g/dl (32.0-36.5); MEAN CORPUSCULAR VOLUME 93.1 fl (80.0-96.0); MONO # 0.4 10^3/uL (0.0-0.8); MONO % 6.5 % (2.0-8.0); NEUTROPHILS # 4.7 10^3/uL (1.5-8.5); NEUTROPHILS % 75.2 % (36.0-66.0); PLATELET COUNT, AUTOMATED 225 10^3/uL (150-450); WHITE BLOOD COUNT 6.2 10^3/uL (4.0-10.0)
[2022-05-26 10:30] LABS: ALBUMIN 3.6 GM/DL (3.2-5.2); BILIRUBIN,DIRECT 0.4 MG/DL (0.0-0.2); CREATININE FOR GFR 1.11 MG/DL (0.55-1.30); GLOMERULAR FILTRATION RATE 51.3 (>39); POTASSIUM SERUM 2.9 MEQ/L (3.5-5.1); TOTAL PROTEIN 7.4 GM/DL (6.4-8.2)
[2022-05-26 10:32] LABS: CK-MB VALUE MASS < 1.0 NG/ML (<3.6); CPK CREATINE PHOSPHOKINASE 48 U/L (26-192); MB/CK RELATIVE INDEX 2.08 (< OR =4)
[2022-05-26 11:18] LABS: CK-MB VALUE MASS < 1.0 NG/ML (<3.6); CPK CREATINE PHOSPHOKINASE 52 U/L (26-192); MB/CK RELATIVE INDEX 1.92 (< OR =4)
[2022-05-26] MEDS ORDERED: POTASSIUM CHLORIDE 10MEQ SR TABLET PO ONE (11:30)
[2022-05-26] MEDS ORDERED: FUROSEMIDE 100MG/10ML VIAL (J1940) IV ONE (11:35)
[2022-05-26 12:37] LABS: RSV AMPLIFICATION NEGATIVE (NEGATIVE)
[2022-05-26] MEDS ORDERED: GNP250TA9 PO (13:03)
[2022-05-26] MEDS ORDERED: HOME MED LIST COMPLETE! XX SCH (13:05)
[2022-05-26 13:29] LABS: CK-MB VALUE MASS < 1.0 NG/ML (<3.6); CPK CREATINE PHOSPHOKINASE 50 U/L (26-192)
[2022-05-26] MEDS ORDERED: FLUTICASONE PROP 0.05% NASAL SPRAY 16 GM (FLONASE) NARES PRN (13:55)
[2022-05-26] MEDS ORDERED: LORATADINE 10 MG TAB PO PRN (14:30)
[2022-05-26] MEDS ORDERED: ALBUTEROL 90 MCG/ACT 8GM HFA INHALER INH PRN (14:30)
[2022-05-26] MEDS ORDERED: METOPROLOL SUCC (TopROL XL) 50MG **XL** TAB PO ONE ×2 (15:05→16:30)
[2022-05-26] MEDS ORDERED: FUROSEMIDE 40MG/4ML VIAL (J1940) IV ONE (16:00)
[2022-05-26 20:52] VITALS: BP 130/85
[2022-05-26] MEDS: AMIODARONE 200 MG TAB (PACERONE) PO SCH (21:40)
[2022-05-26] MEDS: POTASSIUM CHLORIDE 10MEQ SR TABLET PO SCH (21:40)
[2022-05-26] MEDS: APIXABAN 5 MG TAB (ELIQUIS) PO SCH (21:41)
[2022-05-26] MEDS: ASCORBIC ACID 250 MG TAB PO SCH (21:41)
[2022-05-27] VITALS (7 sets, daily range): BP systolic 104–144; BP diastolic 61–82
[2022-05-27] MEDS: ADVAIR HFA 115/21MCG INHALER INH SCH ×3 (00:31→20:00)
[2022-05-27] MEDS: FUROSEMIDE 40MG/4ML VIAL (J1940) IV SCH ×2 (06:43→16:05)
[2022-05-27] MEDS ORDERED: FUROSEMIDE 40MG/4ML VIAL (J1940) IV ONE (07:00)
[2022-05-27 07:45] LABS: CALCIUM LEVEL 9.3 MG/DL (8.8-10.2); CREATININE FOR GFR 1.12 MG/DL (0.55-1.30); GLOMERULAR FILTRATION RATE 50.8 (>39); MAGNESIUM LEVEL 1.9 MG/DL (1.8-2.4); POTASSIUM SERUM 3.4 MEQ/L (3.5-5.1)
[2022-05-27] MEDS: OMEPRAZOLE 20MG CAP PO SCH (07:59)
[2022-05-27] MEDS: POTASSIUM CHLORIDE 10MEQ SR TABLET PO SCH ×2 (08:00→20:07)
[2022-05-27] MEDS: FERROUS GLUCONATE 324 MG TAB PO SCH (08:00)
[2022-05-27] MEDS: APIXABAN 5 MG TAB (ELIQUIS) PO SCH ×2 (08:00→20:07)
[2022-05-27] MEDS: AMIODARONE 200 MG TAB (PACERONE) PO SCH ×2 (08:01→20:09)
[2022-05-27] MEDS: ASCORBIC ACID 250 MG TAB PO SCH ×2 (08:01→20:06)
[2022-05-27] MEDS: ANASTROZOLE 1 MG PO SCH (08:01)
[2022-05-27] MEDS ORDERED: FUROSEMIDE 40 MG TAB PO SCH (09:00)
[2022-05-27] MEDS ORDERED: MAGNESIUM OXIDE 400MG TAB (MAG-OX) PO SCH (09:00)
[2022-05-27] MEDS ORDERED: METOPROLOL SUCC (TopROL XL) 50MG **XL** TAB PO SCH (09:00)
[2022-05-27] MEDS ORDERED: METOPROLOL SUCC (TopROL XL) 100MG *XL* TAB PO SCH (09:00)
[2022-05-27] MEDS ORDERED: METOPROLOL SUCC (TopROL XL) 50MG **XL** TAB PO ONE (10:45)
[2022-05-27] MEDS ORDERED: POTASSIUM CHLORIDE 10MEQ SR TABLET PO SCH (10:45)
[2022-05-27] MEDS: MAGNESIUM OXIDE 400MG TAB (MAG-OX) PO SCH (20:07)
[2022-05-28] VITALS: BP 120/69
[2022-05-28 04:00] VITALS: BP 132/72
[2022-05-28] MEDS: FUROSEMIDE 40MG/4ML VIAL (J1940) IV SCH (06:14)
[2022-05-28] MEDS: ADVAIR HFA 115/21MCG INHALER INH SCH (07:35)
[2022-05-28 07:45] LABS: CALCIUM LEVEL 9.3 MG/DL (8.8-10.2); CREATININE FOR GFR 1.21 MG/DL (0.55-1.30); GLOMERULAR FILTRATION RATE 46.4 (>39); POTASSIUM SERUM 3.5 MEQ/L (3.5-5.1)
[2022-05-28 08:00] VITALS: BP 110/58
[2022-05-28] MEDS: ASCORBIC ACID 250 MG TAB PO SCH (08:37)
[2022-05-28] MEDS: ANASTROZOLE 1 MG PO SCH (08:37)
[2022-05-28] MEDS: POTASSIUM CHLORIDE 10MEQ SR TABLET PO SCH (08:38)
[2022-05-28] MEDS: OMEPRAZOLE 20MG CAP PO SCH (08:39)
[2022-05-28] MEDS: AMIODARONE 200 MG TAB (PACERONE) PO SCH (08:39)
[2022-05-28] MEDS: FERROUS GLUCONATE 324 MG TAB PO SCH (08:39)
[2022-05-28] MEDS: MAGNESIUM OXIDE 400MG TAB (MAG-OX) PO SCH (08:39)
[2022-05-28] MEDS: APIXABAN 5 MG TAB (ELIQUIS) PO SCH (08:39)
[2022-05-28] MEDS ORDERED: METOPROLOL SUCC (TopROL XL) 50MG **XL** TAB PO SCH (09:00)
[2022-05-28] MEDS ORDERED: METO1TAB33 PO (09:20)
[2022-05-28] MEDS ORDERED: [UNRECOGNIZED DRUG - CODE] XX (09:21)
== END 2022-05-28 12:25 | disposition home or self-care (01) | DRG 308 ==
LOC: EDBD 08:58 → M ED 08:58 → M ED INP 13:18 → ENRESERV 18:21 → M PCU 20:52
PROVIDERS: ADMIT Student in an Organized Health Care Education/Training Program; ATTEND Student in an Organized Health Care Education/Training Program
DX: I48.91 Unspecified atrial fibrillation (principal); I50.33 Acute on chronic diastolic (congestive) heart failure; E87.6 Hypokalemia; D50.9 Iron deficiency anemia, unspecified; J45.909 Unspecified asthma, uncomplicated; K21.9 Gastro-esophageal reflux disease without esophagitis; K29.70 Gastritis, unspecified, without bleeding; Z86.711 Personal history of pulmonary embolism; Z86.718 Personal history of other venous thrombosis and embolism; Z79.899 Other long term (current) drug therapy; I11.0 Hypertensive heart disease with heart failure; E78.5 Hyperlipidemia, unspecified; G47.33 Obstructive sleep apnea (adult) (pediatric); Z87.891 Personal history of nicotine dependence

== ENCOUNTER → 2022-08-21 | Outpatient (CLI) | payer MEDICARE, OTHER ==
[~2022-08-21] MED LIST changes: +GNP250TA9 PO; +METO1TAB33 PO; +SPIR-10 PO; +[UNRECOGNIZED DRUG - CODE] XX
[2022-08-21 11:16] LABS: BASO % 0.3 % (0.0-1.0); EOS # 0.2 10^3/uL (0.0-0.5); EOS % 2.3 % (0.0-3.0); HEMATOCRIT 37.4 % (36.0-47.0); HEMOGLOBIN 11.9 g/dl (12.0-15.5); LYMPH # 1.5 10^3/uL (1.5-5.0); LYMPH % 23.2 % (24.0-44.0); MEAN CORPUSCULAR HEMOGLOBIN 29.7 pg (27.0-33.0); MEAN CORPUSCULAR HGB CONC 31.8 g/dl (32.0-36.5); MEAN CORPUSCULAR VOLUME 93.3 fl (80.0-96.0); MONO # 0.5 10^3/uL (0.0-0.8); NEUTROPHILS # 4.3 10^3/uL (1.5-8.5); NEUTROPHILS % 66.9 % (36.0-66.0); PLATELET COUNT, AUTOMATED 248 10^3/uL (150-450); RED BLOOD COUNT 4.01 10^6/uL (4.00-5.40); WHITE BLOOD COUNT 6.5 10^3/uL (4.0-10.0)
[2022-08-21 11:32] LABS: ALBUMIN 3.8 G/DL (3.2-5.2); BILIRUBIN,TOTAL 0.8 MG/DL (0.3-1.2); CALCIUM LEVEL 9.1 MG/DL (8.3-10.6); CREATININE FOR GFR 1.06 MG/DL (0.55-1.30); GLOMERULAR FILTRATION RATE 54.1 (>39); POTASSIUM SERUM 4.1 MMOL/L (3.5-5.1); TOTAL PROTEIN 7.4 G/DL (5.7-8.2)
== END ==
LOC: M PLALAB 08:34
PROVIDERS: ATTEND Internal Medicine Medical Oncology
DX: D05.11 Intraductal carcinoma in situ of right breast (principal)

== ENCOUNTER → 2023-01-12 | Outpatient (CLI) | payer MEDICARE, OTHER | LOC: M WHC 09:31 | PROVIDERS: ATTEND Internal Medicine Medical Oncology | DX: N95.9 Unspecified menopausal and perimenopausal disorder (principal); M85.89 Other specified disorders of bone density and structure, multiple sites ==

== ENCOUNTER → 2023-02-14 | Outpatient (CLI) | payer MEDICARE, OTHER ==
[~2023-02-14] MED LIST changes: +DICL100G10; -DICL1GEL3
[2023-02-14 14:45] LABS: BASO % 0.6 % (0.0-1.0); EOS # 0.2 10^3/uL (0.0-0.5); EOS % 2.8 % (0.0-3.0); HEMATOCRIT 35.5 % (36.0-47.0); HEMOGLOBIN 11.3 g/dl (12.0-15.5); LYMPH # 1.5 10^3/uL (1.5-5.0); LYMPH % 28.2 % (24.0-44.0); MEAN CORPUSCULAR HEMOGLOBIN 29.8 pg (27.0-33.0); MEAN CORPUSCULAR HGB CONC 31.8 g/dl (32.0-36.5); MEAN CORPUSCULAR VOLUME 93.7 fl (80.0-96.0); MONO # 0.4 10^3/uL (0.0-0.8); MONO % 6.8 % (2.0-8.0); NEUTROPHILS # 3.3 10^3/uL (1.5-8.5); NEUTROPHILS % 61.2 % (36.0-66.0); PLATELET COUNT, AUTOMATED 249 10^3/uL (150-450); RED BLOOD COUNT 3.79 10^6/uL (4.00-5.40); WHITE BLOOD COUNT 5.3 10^3/uL (4.0-10.0)
[2023-02-14 15:44] LABS: ALBUMIN 3.7 G/DL (3.2-5.2); BILIRUBIN,TOTAL 0.6 MG/DL (0.3-1.2); CALCIUM LEVEL 8.9 MG/DL (8.3-10.6); CREATININE FOR GFR 1.06 MG/DL (0.55-1.30); GLOMERULAR FILTRATION RATE 54.1 (>39); PERCENT SATURATION 23.3 % (13.2-45.0)
== END ==
LOC: M PLALAB 09:53
PROVIDERS: ATTEND Internal Medicine Medical Oncology
DX: C50.919 Malignant neoplasm of unspecified site of unspecified female breast (principal)

== ENCOUNTER → 2023-04-19 | Outpatient (REF) | payer MEDICARE, OTHER ==
[~2023-04-19] MED LIST changes: +LORA-1041 PO; -LORA-674 PO
== END ==
LOC: M LAB REF 12:09
PROVIDERS: ATTEND Internal Medicine
DX: D50.9 Iron deficiency anemia, unspecified (principal)

== ENCOUNTER → 2023-08-24 | Outpatient (CLI) | payer MEDICARE, OTHER ==
[2023-08-24 18:45] LABS: BASO # 0.1 10^3/uL (0.0-0.2); BASO % 0.9 % (0.0-1.0); EOS # 0.3 10^3/uL (0.0-0.5); EOS % 4.9 % (0.0-3.0); HEMATOCRIT 38.4 % (36.0-47.0); HEMOGLOBIN 12.8 g/dl (12.0-15.5); LYMPH # 1.9 10^3/uL (1.5-5.0); LYMPH % 30.1 % (24.0-44.0); MEAN CORPUSCULAR HGB CONC 33.3 g/dl (32.0-36.5); MONO # 0.4 10^3/uL (0.0-0.8); MONO % 6.9 % (2.0-8.0); NEUTROPHILS # 3.6 10^3/uL (1.5-8.5); NEUTROPHILS % 56.7 % (36.0-66.0); PLATELET COUNT, AUTOMATED 232 10^3/uL (150-450); WHITE BLOOD COUNT 6.4 10^3/uL (4.0-10.0)
[2023-08-24 18:56] LABS: FERRITIN 101.9 NG/ML (7.3-270.7)
[2023-08-24 18:57] LABS: FOLATE 7.11 NG/ML (>5.4)
[2023-08-24 19:01] LABS: ALBUMIN 3.8 G/DL (3.2-5.2); BILIRUBIN,TOTAL 0.5 MG/DL (0.3-1.2); CALCIUM LEVEL 8.9 MG/DL (8.3-10.6); CREATININE FOR GFR 1.01 MG/DL (0.55-1.30); PERCENT SATURATION 14.7 % (13.2-45.0); POTASSIUM SERUM 4.5 MMOL/L (3.5-5.1); TOTAL PROTEIN 7.1 G/DL (5.7-8.2)
== END ==
LOC: M PLALAB 15:15
PROVIDERS: ATTEND Internal Medicine Medical Oncology
DX: Z79.810 Long term (current) use of selective estrogen receptor modulators (SERMs) (principal); Z85.3 Personal history of malignant neoplasm of breast; I10 Essential (primary) hypertension; E78.5 Hyperlipidemia, unspecified; D64.9 Anemia, unspecified

== ENCOUNTER 2023-09-14 07:08 | Day surgery (SDC) | payer MEDICARE, OTHER ==
[~2023-09-14] VITALS: Ht 160 cm; Wt 112.5 kg
[~2023-09-14 07:08] MED LIST changes: +ATOR1TAB19 PO; +FLUT1BLS5; +TOPR100T PO
[2023-09-14] MEDS: NS 1,000 ML IV ONE (07:27)
[2023-09-14] MEDS ORDERED: fentaNYL 100 MCG/2 ML INJECTION As Ordered ONE (07:54)
[2023-09-14] MEDS ORDERED: propofoL 200 MG/20 ML VIAL As Ordered ONE (08:39)
[2023-09-14] MEDS ORDERED: ePHEDrine SULFATE 25 MG/5 ML(5MG/ML) SYRINGE As Ordered ONE (08:39)
[2023-09-14 09:10] VITALS: TEMP 97.9
[2023-09-14 09:30] VITALS: BP 132/61; O2SAT 97
== END 2023-09-14 09:47 | disposition home or self-care (01) ==
LOC: M OPP 07:08
PROVIDERS: ATTEND Internal Medicine Gastroenterology
DX: D50.9 Iron deficiency anemia, unspecified (principal); K29.50 Unspecified chronic gastritis without bleeding; K21.00 Gastro-esophageal reflux disease with esophagitis, without bleeding; D12.3 Benign neoplasm of transverse colon; D12.2 Benign neoplasm of ascending colon; D17.5 Benign lipomatous neoplasm of intra-abdominal organs; K57.30 Diverticulosis of large intestine without perforation or abscess without bleeding; K64.8 Other hemorrhoids; K64.4 Residual hemorrhoidal skin tags; K22.89 Other specified disease of esophagus; Z86.010 Personal history of colon polyps; Z85.3 Personal history of malignant neoplasm of breast; Z85.44 Personal history of malignant neoplasm of other female genital organs; I10 Essential (primary) hypertension; J45.909 Unspecified asthma, uncomplicated; Z79.899 Other long term (current) drug therapy
CPT/HCPCS: 43239; 45380; 45385; 88304; 88305; J3010

== ENCOUNTER → 2023-09-20 | Outpatient (CLI) | payer MEDICARE, OTHER | LOC: M PLAIMG 10:38 | PROVIDERS: ATTEND Nurse Practitioner Adult Health | DX: J45.30 Mild persistent asthma, uncomplicated (principal) ==

== ENCOUNTER → 2023-09-20 | Outpatient (CLI) | payer MEDICARE, OTHER ==
[2023-09-20 14:47] LABS: BASO % 0.8 % (0.0-1.0); EOS # 0.2 10^3/uL (0.0-0.5); EOS % 4.2 % (0.0-3.0); HEMATOCRIT 35.3 % (36.0-47.0); LYMPH # 1.5 10^3/uL (1.5-5.0); LYMPH % 32.3 % (24.0-44.0); MEAN CORPUSCULAR HEMOGLOBIN 32.2 pg (27.0-33.0); MEAN CORPUSCULAR VOLUME 94.6 fl (80.0-96.0); MONO # 0.3 10^3/uL (0.0-0.8); MONO % 5.5 % (2.0-8.0); NEUTROPHILS # 2.7 10^3/uL (1.5-8.5); PLATELET COUNT, AUTOMATED 213 10^3/uL (150-450); RED BLOOD COUNT 3.73 10^6/uL (4.00-5.40); WHITE BLOOD COUNT 4.7 10^3/uL (4.0-10.0)
[2023-09-20 15:10] LABS: ALBUMIN 3.6 G/DL (3.2-5.2)
[2023-09-20 15:17] LABS: PERCENT SATURATION 17.2 % (13.2-45.0)
== END ==
LOC: M PLALAB 10:35
PROVIDERS: ATTEND Orthopaedic Surgery
DX: M17.11 Unilateral primary osteoarthritis, right knee (principal); M25.561 Pain in right knee

== ENCOUNTER → 2023-11-06 | Outpatient (REF) | payer MEDICARE, OTHER ==
[~2023-11-06] MED LIST changes: +AMOX875T2 PO
== END ==
LOC: M LAB REF 16:26
PROVIDERS: ATTEND Physician Assistant Medical
DX: B34.9 Viral infection, unspecified (principal)

== ENCOUNTER 2023-11-08 11:30 | Emergency (ER) | payer MEDICARE, OTHER ==
[~2023-11-08] VITALS: Ht 160 cm; Wt 109.1 kg
[~2023-11-08 11:30] MED LIST changes: -AMOX875T2 PO
[2023-11-08] MEDS ORDERED: AMOX875T2 PO (13:44)
[2023-11-08 13:59] VITALS: BP 145/68; TEMP 98.1; O2SAT 98
== END 2023-11-08 14:02 | disposition home or self-care (01) ==
LOC: M ED 11:30
DX: S81.801A Unspecified open wound, right lower leg, initial encounter (principal); Y92.9 Unspecified place or not applicable; Y93.9 Activity, unspecified; Y99.9 Unspecified external cause status; I10 Essential (primary) hypertension; Z91.09 Other allergy status, other than to drugs and biological substances; Z79.51 Long term (current) use of inhaled steroids; Z79.2 Long term (current) use of antibiotics; Z79.899 Other long term (current) drug therapy

== ENCOUNTER → 2024-09-29 | Outpatient (CLI) | payer MEDICARE, OTHER ==
[~2024-09-29] MED LIST changes: -ADV250INH INH; +ADVA1AER9 INH; +AMOX875T2 PO; +CAPE1TAB2 PO; +FAMO20TA PO; +FAMO40TA3 PO; -FLUT1BLS5; +FLUT1BLS5 INH; +LUTE1CAP6 PO; +POTA10807 PO; -POTA10808 PO; +SLOWTAB2 PO; +VITA250T27 PO; -VITA250T4 PO
== END ==
LOC: M WHC 14:18
PROVIDERS: ATTEND Dietitian, Registered
DX: Z12.31 Encounter for screening mammogram for malignant neoplasm of breast (principal); Z85.3 Personal history of malignant neoplasm of breast

== ENCOUNTER → 2024-10-24 | Outpatient (CLI) | payer MEDICARE, OTHER | LOC: M RAD 15:26 | PROVIDERS: ATTEND Nurse Practitioner Women's Health | DX: M79.89 Other specified soft tissue disorders (principal); Z86.718 Personal history of other venous thrombosis and embolism ==

== ENCOUNTER → 2024-12-03 | Outpatient (CLI) | payer MEDICARE, OTHER ==
[~2024-12-03] MED LIST changes: +ISOVUE-370 76% 100ML VIAL As Ordered ONE
== END ==
LOC: M RAD 15:48
PROVIDERS: ATTEND Internal Medicine Medical Oncology
DX: C23 Malignant neoplasm of gallbladder (principal); I51.7 Cardiomegaly; Z90.49 Acquired absence of other specified parts of digestive tract
CPT/HCPCS: 71260; 74177; Q9967

== ENCOUNTER → 2025-03-02 | Outpatient (REF) | payer MEDICARE, OTHER ==
[~2025-03-02] MED LIST changes: -AMIO200T49 PO; +AMIO200T54 PO; -ISOVUE-370 76% 100ML VIAL As Ordered ONE; +SLOW1TAB3 PO; -SLOWTAB2 PO
[2025-03-02 11:05] LABS: BASO # 0.0 10^3/uL (0.0-0.2); BASO % 0.9 % (0.0-1.0); EOS # 0.1 10^3/uL (0.0-0.5); EOS % 2.7 % (0.0-3.0); LYMPH # 1.1 10^3/uL (1.5-5.0); LYMPH % 24.6 % (24.0-44.0); MONO # 0.3 10^3/uL (0.0-0.8); MONO % 7.6 % (2.0-8.0); NEUTROPHILS # 2.9 10^3/uL (1.5-8.5); NEUTROPHILS % 64.0 % (36.0-66.0); PLATELET COUNT, AUTOMATED 229 10^3/uL (150-450)
[2025-03-02 11:36] LABS: ALT/SGPT 16.0 U/L (7.0-40); AST/SGOT 26.0 U/L (<34); CALCIUM LEVEL 8.0 MG/DL (8.3-10.6); CARBON DIOXIDE LEVEL 28.0 MMOL/L (20-31); CHLORIDE LEVEL 105.0 MMOL/L (98-107); CREATININE FOR GFR 1.0 MG/DL (0.55-1.30); GLOMERULAR FILTRATION RATE 58.4 (>39); MAGNESIUM LEVEL 1.9 MG/DL (1.8-2.4); POTASSIUM SERUM 3.2 MMOL/L (3.5-5.1); SODIUM LEVEL 144.0 MMOL/L (136-145)
== END ==
LOC: M LAB REF 10:38
PROVIDERS: ATTEND Internal Medicine
DX: K21.9 Gastro-esophageal reflux disease without esophagitis (principal); Z13.31 Encounter for screening for depression; E83.42 Hypomagnesemia

== ENCOUNTER → 2025-03-02 | Outpatient (REF) | payer MEDICARE, OTHER ==
[2025-03-02 11:30] LABS: ALT/SGPT 17.0 U/L (7.0-40); AST/SGOT 27.0 U/L (<34); CALCIUM LEVEL 8.2 MG/DL (8.3-10.6); CARBON DIOXIDE LEVEL 29.0 MMOL/L (20-31); CHLORIDE LEVEL 102.0 MMOL/L (98-107); CREATININE FOR GFR 0.98 MG/DL (0.55-1.30); GLOMERULAR FILTRATION RATE 59.8 (>39); POTASSIUM SERUM 3.2 MMOL/L (3.5-5.1); SODIUM LEVEL 142.0 MMOL/L (136-145)
== END ==
LOC: M LAB REF 10:35
PROVIDERS: ATTEND Internal Medicine Cardiovascular Disease
DX: I50.32 Chronic diastolic (congestive) heart failure (principal)

== ENCOUNTER → 2025-03-24 | Outpatient (CLI) | payer MEDICARE, OTHER ==
[2025-03-24 14:15] LABS: CALCIUM LEVEL 9.8 MG/DL (8.3-10.6); CARBON DIOXIDE LEVEL 34.0 MMOL/L (20-31); CHLORIDE LEVEL 96.0 MMOL/L (98-107); CREATININE FOR GFR 1.08 MG/DL (0.55-1.30); GLOMERULAR FILTRATION RATE 53.2 (>39); POTASSIUM SERUM 3.0 MMOL/L (3.5-5.1); SODIUM LEVEL 142.0 MMOL/L (136-145)
== END ==
LOC: M PLALAB 10:36
PROVIDERS: ATTEND Internal Medicine Cardiovascular Disease
DX: I50.33 Acute on chronic diastolic (congestive) heart failure (principal)

== ENCOUNTER → 2025-03-25 | Outpatient (CLI) | payer MEDICARE, OTHER ==
[~2025-03-25] MED LIST changes: +ISOVUE-370 76% 100 ML VIAL As Ordered ONE
== END ==
LOC: M RAD 08:57
DX: C50.911 Malignant neoplasm of unspecified site of right female breast (principal); J98.11 Atelectasis; R91.1 Solitary pulmonary nodule; N28.1 Cyst of kidney, acquired; M47.814 Spondylosis without myelopathy or radiculopathy, thoracic region; M41.9 Scoliosis, unspecified; K42.9 Umbilical hernia without obstruction or gangrene; I70.0 Atherosclerosis of aorta; R93.49 Abnormal radiologic findings on diagnostic imaging of other urinary organs
CPT/HCPCS: 71260; 74177; Q9967

== ENCOUNTER → 2025-04-14 | Outpatient (CLI) | payer MEDICARE, OTHER ==
[~2025-04-14] MED LIST changes: -ISOVUE-370 76% 100 ML VIAL As Ordered ONE
== END ==
LOC: M PLARAD 11:15
PROVIDERS: ATTEND Internal Medicine Medical Oncology
DX: C23 Malignant neoplasm of gallbladder (principal)
CPT/HCPCS: 78815; A9552

== ENCOUNTER → 2025-04-20 | Outpatient (CLI) | payer MEDICARE, OTHER ==
[2025-04-20 14:13] LABS: CALCIUM LEVEL 9.0 MG/DL (8.3-10.6); CARBON DIOXIDE LEVEL 33.0 MMOL/L (20-31); CHLORIDE LEVEL 94.0 MMOL/L (98-107); CREATININE FOR GFR 1.34 MG/DL (0.55-1.30); GLOMERULAR FILTRATION RATE 41.1 (>39); POTASSIUM SERUM 2.4 MMOL/L (3.5-5.1); SODIUM LEVEL 139.0 MMOL/L (136-145)
== END ==
LOC: M PLALAB 11:50
PROVIDERS: ATTEND Internal Medicine Cardiovascular Disease
DX: E87.6 Hypokalemia (principal)

== ENCOUNTER → 2025-05-04 | Outpatient (CLI) | payer MEDICARE, OTHER ==
[2025-05-04 11:08] LABS: BASO # 0.1 10^3/uL (0.0-0.2); BASO % 0.8 % (0.0-1.0); EOS # 0.1 10^3/uL (0.0-0.5); EOS % 1.9 % (0.0-3.0); LYMPH # 1.7 10^3/uL (1.5-5.0); LYMPH % 26.9 % (24.0-44.0); MONO # 0.5 10^3/uL (0.0-0.8); MONO % 7.3 % (2.0-8.0); NEUTROPHILS # 4.0 10^3/uL (1.5-8.5); NEUTROPHILS % 62.8 % (36.0-66.0); PLATELET COUNT, AUTOMATED 263 10^3/uL (150-450)
[2025-05-04 13:20] LABS: ALT/SGPT 14.0 U/L (7.0-40); AST/SGOT 23.0 U/L (<34); CA15-3 ANTIGEN 35.8 U/ML (<32.4); CALCIUM LEVEL 9.3 MG/DL (8.3-10.6); CARBON DIOXIDE LEVEL 30.0 MMOL/L (20-31); CHLORIDE LEVEL 99.0 MMOL/L (98-107); CREATININE FOR GFR 1.2 MG/DL (0.55-1.30); GLOMERULAR FILTRATION RATE 46.9 (>39); POTASSIUM SERUM 2.9 MMOL/L (3.5-5.1); SODIUM LEVEL 141.0 MMOL/L (136-145)
== END ==
LOC: M PLALAB 09:08
PROVIDERS: ATTEND Internal Medicine Medical Oncology
DX: C50.911 Malignant neoplasm of unspecified site of right female breast (principal)

== ENCOUNTER → 2025-07-06 | Outpatient (CLI) | payer MEDICARE, OTHER ==
[2025-07-06 14:05] LABS: BASO # 0.0 10^3/uL (0.0-0.2); BASO % 0.6 % (0.0-1.0); EOS # 0.2 10^3/uL (0.0-0.5); EOS % 2.9 % (0.0-3.0); LYMPH # 1.3 10^3/uL (1.5-5.0); LYMPH % 25.0 % (24.0-44.0); MONO # 0.3 10^3/uL (0.0-0.8); MONO % 6.1 % (2.0-8.0); NEUTROPHILS # 3.4 10^3/uL (1.5-8.5); NEUTROPHILS % 65.0 % (36.0-66.0); PLATELET COUNT, AUTOMATED 249 10^3/uL (150-450)
[2025-07-06 14:22] LABS: C REACTIVE PROTEIN QUANTITATIV 0.55 MG/DL (<1.0); IRON (FE) 77.0 UG/DL (50-170); PERCENT SATURATION 20.8 % (13.2-45.0)
[2025-07-06 14:24] LABS: TOTAL 25(OH) VITAMIN D 32.2 NG/ML (20.0-100.0)
[2025-07-06 14:25] LABS: VITAMIN B12 LEVEL 365.0 PG/ML (211-911)
[2025-07-07 11:51] LABS: CARDIOLIPIN IGA ANTIBODY 2.9 APL-U/mL (<20.0); CARDIOLIPIN IGG ANTIBODY < 2.0 GPL-U/mL (<20.0)
[2025-07-08 23:11] LABS: PROTEIN C FUNCTIONAL ACTIVITY 97 % normal (70-180); PROTEIN S FUNCTIONAL ACTIVITY 68 % normal (60-140)
[2025-07-11 03:58] LABS: ANTI THROMBIN 3 ANTIGEN IMMUNO 116 % normal (80-120); ANTI THROMBIN 3 FUNCT ACTIVITY 116 % normal (80-135)
[2025-07-15 12:31] LABS: CARDIOLIPIN IGM ANTIBODY < 2.0 MPL-U/mL; FACTOR V LEIDEN FOR MEDINET NEGATIVE
== END ==
LOC: M PLALAB 11:10
PROVIDERS: ATTEND Internal Medicine Medical Oncology
DX: C50.911 Malignant neoplasm of unspecified site of right female breast (principal); Z79.899 Other long term (current) drug therapy

== ENCOUNTER → 2025-07-13 | Outpatient (CLI) | payer MEDICARE, OTHER ==
[~2025-07-13] MED LIST changes: +ISOVUE-370 76% 100 ML VIAL As Ordered ONE
== END ==
LOC: M RAD 08:23
PROVIDERS: ATTEND Internal Medicine Medical Oncology
DX: Z85.3 Personal history of malignant neoplasm of breast (principal)
CPT/HCPCS: 71260; 74177; 82565; Q9967